=== PATIENT | female | born 1960 | race Caucasian/White ===

== ENCOUNTER 2023-04-01 15:42 | Outpatient (CLI) | payer OTHER, SELFPAY | END 2023-04-01 15:43 | disposition home or self-care (01) | LOC: LKVREF 15:43 | PROVIDERS: Visit Provider Physician Assistant | DX: R55 Syncope and collapse (principal) | CPT/HCPCS: 84484 ==

== ENCOUNTER 2023-12-07 09:38 | Outpatient (RCR) | payer OTHER, SELFPAY | END 2024-04-05 23:59 | disposition home or self-care (01) | PROVIDERS: Visit Provider Student in an Organized Health Care Education/Training Program | DX: M76.61 Achilles tendinitis, right leg (principal); Z51.89 Encounter for other specified aftercare | CPT/HCPCS: 97110; 97140; 97162; 97164 ==

== ENCOUNTER 2024-04-19 09:00 | Outpatient (CLI) | payer OTHER, SELFPAY ==
[2024-04-19 14:59] LABS: Chlamydia DNA Amplified* NOT DETECTED (No Detected); GC DNA Amplified* NOT DETECTED (No Detected)
== END 2024-04-19 09:01 | disposition home or self-care (01) ==
PROVIDERS: PCP Physician Assistant Medical; Visit Provider Physician Assistant Medical
DX: R79.89 Other specified abnormal findings of blood chemistry (principal); R00.1 Bradycardia, unspecified; E53.8 Deficiency of other specified B group vitamins; Z11.3 Encounter for screening for infections with a predominantly sexual mode of transmission; Z13.220 Encounter for screening for lipoid disorders
CPT/HCPCS: 80053; 80061; 82306; 82550; 82607; 82652; 84443; 85379; 86703; 86803; 87491; 87591; 87624

== ENCOUNTER 2024-05-09 13:26 | Outpatient (CLI) | payer OTHER, SELFPAY ==
--- OUTSIDE RECORDS SUMMARY | 2024-05-09 13:28 | XMS_ITS | Referral Summary ---
Author Organization [place] Address [address] [place] [address] Care Team Providers Care Steward/Stewardess Lounge Name Role Phone [facility]- Primary Care Provider Stevenson Zambrano MD Unavailable [phone] Marlys Joy PA-C Unavailable [phone] Marlys Joy PA-C Unavailable [phone] Encounters Date Type Department Care Team Description 03/29/2024 Documentation Only [address] [place] [phone] Marlys Joy PA-C Results 03/28/2024 Travel 03/28/2024 3:15 PM CDT Orders Only [address] [place] [phone] Marlys Joy PA-C Encounter for monitoring flecainide therapy 03/09/[address] [place] [phone] Daniela Lackey RN 03/09/2024 Travel 03/09/2024 10:00 AM CDT Orders Only [facility] [id number] [place] [address] [address] [place] [phone] Marlys Joy PA-C Paroxysmal atrial fibrillation (H); Encounter for monitoring flecainide therapy 03/08/2024 Travel from Last 3 Months Allergies No known active allergies Medications Medication Sig Dispensed Refills Start Date End Date Status Multiple vitamin TABS Take 1 tablet by mouth daily Active CALCIUM CARBONATE PO Take 1,500 mg by mouth daily Active cyanocobalamin (VITAMIN B-12) 1000 MCG tablet Take 1,000 mcg by mouth Give 1000 mcg by mouth one time a day every 30 day(s) for supplement Active aspirin 81 MG EC tablet Take 81 mg by mouth daily Active Apoaequorin (PREVAGEN) 10 MG CAPS Take by mouth daily Active metoprolol succinate ER (TOPROL XL) 25 MG 24 hr tabletIndications:Jose Alejandro roxysmal atrial fibrillation (H) Take 0.5 tablets (12.5 mg) by mouth daily 45 tablet 3 11/04/2023 Active flecainide (TAMBOCOR) 100 MG tabletIndications:En counter for monitoring flecainide therapy Take 50 mg ( 1/2 tab) twice daily 30 tablet 11 03/29/2024 Active Active Problems Problem Noted Date Diagnosed Date Morbid obesity 01/12/2021 S/p total knee replacement, bilateral by Dr. Anthony prescott 11/29/2016 Aftercare following bilatera l knee joint replacement surgery 11/29/2016 Dizziness 11/29/2016 Vitamin B12 deficiency 11/29/2016 History of gastric bypass 11/29/2016 Deep vein thrombosis (DVT) p rophylaxis prescribed at discharge 11/29/2016 Physical deconditioning 11/29/2016 Resolved Problems Problem Noted Date Diagnosed Date Resolved Date Neck pain 12/31/2009 07/16/2011 Headache 12/31/2009 07/16/2011 Overview: Problem list name updated by automated process. Provider to review Pain in joint, lower leg 02/19/2009 OA (osteoarthritis) of knee 02/19/2009 04/29/2009 Social History Tobacco Use Types Packs/Day Years Used Date Smoking Tobacco: Never Smokeless Tobacco: Never Tobacco Cessation:Counseling Given: Not Answered Alcohol Use Standard Drinks/Week Comments Yes 0 (1 standard drink = 0.6 oz pur e alcohol) SOCIAL PHQ-2 Answer Date Recorded PHQ-2 Score 0 11/04/2023 Adolescent Education Answer Date Record ed Getting School Help Needed Not on file 05/15 Sex and Gender Information Value Date Recorded Sex Assigned at Female 05/15/2021 1:20 PM CDT Gender Identity Female 05/15/2021 1:20 PM CDT Sexual Orientation Straight 05/15/2021 1: 20 PM CDT Last Filed Vital Signs Vital Sign Reading Time Taken Comments Blood Pressure 137/76 04/01/2023 8:53 PM CDT Pulse 45 04/01/2023 8:53 PM CDT Temperature 36.9 ??C (98.5 ??F) 04/01/2023 4:53 PM CD T Respiratory Rate 16 04/01/2023 8:53 PM CDT Oxygen Saturation 98% 04/01/2023 8:53 PM CDT Inhaled Oxygen Concentration - - Weight 107.9 kg (237 lb 12.8 oz) 2020 12:57 PM CDT Height 160 cm (5' 3) 11/12/2018 4:05 AM CDT Body Mass Index 42.12 11/12/2018 4:05 AM CDT Plan of Treatment Not on file Procedures Procedure Name Priority Date/Time Associated Diagnosis Comments EKG 12-LEAD, TRACING ONLY Routine 03/28/2024 Encounter for monitoring flecainide therapy EKG 12-LEAD COMPLETE W/READ - CLINICS Routine 03/09/2024 Paroxysmal atrial fibrillation (H) Encounter for monitoring flecainide therapy BASIC METABOLIC PANEL STAT 04/01/2023 6:01 PM CDT LIPID PROFILE Routine 10/18/2007 9:47 AM CDT from Last 3 Months or Most Recently Relevant to Health Maintenance Results * EKG 12-lead, tracing only (03/28/2024) Marlys Joy PA-C ECG ORDERAB LES * EKG 12-lead complete w/read - Clinics (to be scheduled) (03/09/2024) Marlys McAllan Joy PA-C ECG ORDERAB LES * (ABNORMAL) Basic metabolic panel (04/01/2023 6:01 PM CDT) Sodium 138 136 - 145 mmol/L 04/01/2023 6:23 PM CDT LABORATORY Potassium 4.3 3.4 - 5.3 mmol/L 04/01/2023 6:23 PM CDT [facility] LABORATORY Chloride 106 98 - 107 mmol/L 04/01/2023 6:23 PM CDT LABORATORY Carbon Dioxide (CO2) 25 22 - 29 mmol/L 04/01/2023 6:23 PM CDT LABORATORY Anion Gap 7 7 - 15 mmol/L 04/01/2023 6:23 PM CDT [facility] Urea Nitrogen 12.7 8.0 - 23.0 mg/dL 04/01/2023 6:23 PM CDT LABORATORY Creatinine 0.81 0.51 - 0.95 mg/dL 04/01/2023 6:23 PM CDT LABORATORY Calcium 9.7 8.8 - 10.2 mg/dL 04/01/2023 6:23 PM CDT LABORATORY Glucose 128(H) 70 - 99 mg/dL 04/01/2023 6:23 PM CDT LABORATORY GFR Estimate 81 >60 mL/min/1.7 3m2 04/01/2023 6:23 PM CDT LABORATORY Blood STRUCTURE OF LEFT UPPER LIMB / Unknown Venipuncture / Unknown 04/01/2023 6:01 PM CDT 04/01/2023 6:04 PM CDT Arleen Garcia DO LAB - BLOOD ORDERABL ES LABORATORY [facility] [address] Lab (1st floor, no room number) [place] [address], [facility] [phone] * Lipid panel (10/18/2007 9:47 AM CDT) Cholesterol 168 0 - 200 mg/dL MISYS Comment: LDL Cholesterol is the primary guide to therapy: LDL-cholesterol goal in high risk patients is <100 mg/dL and in very high risk patients is <70 mg/dL. The NCEP recommends further evaluation of: patients with cholesterol <200 mg/dL if additionalrisk factors are present, cholesterol >240 mg/dL, triglycerides >150 mg/dL, or HDL <40 mg/dL. Triglycerides 39 0 - 150 mg/dL MISYS HDL Cholesterol 68 50 - 110 mg/dL MISYS LDL Cholesterol Calculated 93 0 - 129 mg/dL [facility] VLDL-Cholesterol 8 0 - 30 mg/dL [facility] Cholesterol/HDL Ratio 2.5 0.0 - 5.0 [facility] 10/18/2007 9:47 AM CDT 10/18/2007 9:29 AM CDT Paula Montelongo APRN ADMINISTRATIVE COORDINATOR LAB - BLOOD O RDERABLES [facility]IS[facility] from Last 3 Months or Most Recently Relevant to Health Maintenance Care Teams Steward/Stewardess Lounge Relationship Specialty Start Date End Date [facility]- [address] [place] [address] PCP - General 11/12/18 Stevenson Zambrano MD [address] [place] [address] Cardiovascular Disease 09/08/22 Marlys Joy PA-C [address] [place] [address] Physician Engineering Department Chair Cardiovascular Disease 10/04/23 Marlys Joy PA-C [address] [place] [address]47[address] Assigned Heart and Vascular Provider 11/29/23
--- OUTSIDE RECORDS SUMMARY | 2024-05-09 13:28 | XMS_ITS | Encounter Summary ---
Author Organization [place] Address [address] [place] [address] Care Team Providers Care Satin Finisher Name Role Phone [facility]- Primary Care Provider Stevenson Zambrano MD Unavailable [phone] Marlys Joy PA-C Unavailable [phone] Marlys Joy PA-C Unavailable [phone] Encounter Details Date Type Department Care Team (Latest Contact Info) Description 03/28/2024 Travel Social History Tobacco Use Types Packs/Day Years Used Date Smoking Tobacco: Never Smokeless Tobacco: Never Alcohol Use Standard Drinks/Week Comments Yes 0 [...] Orientation Straight 05/15/2021 1: 20 PM CDT documented as of this encounter Plan of Treatment Not on file documented as of this encounter Visit Diagnoses Not on filedocumented in this encounter Care Teams Satin Finisher Relationship Specialty Start Date End Date [facility]- [address] [place] [address] PCP - General 11/12/18 Stevenson Zambrano MD [address] [place] [address] Cardiovascular Disease 09/08/22 Marlys Joy, PAAbhinavC [address] [place] [address] Physician Chipper Feeder Cardiovascular Disease 10/04/23 Marlys Joy, PA-C [address] [place] [id number] Assigned Heart and Vascular Provider 11/29/23 documented as of this encounter
--- OUTSIDE RECORDS SUMMARY | 2024-05-09 13:28 | XMS_ITS | Clinical Summary ---
Author Organization [place] Address [address] [place] [address] Care Team Providers Care Property Maintenance Supervisor Name Role Phone [facility]- Primary Care Provider Stevenson Zambrano MD Unavailable [phone] Marlys Joy PA-C Unavailable [phone] Marlys Joy PA-C Unavailable + [phone] Allergies No known active allergies Medications Medication [...] ER (TOPROL XL) 25 MG 24 hr tabletIndications:Pa roxysmal atrial fibrillation (H) Take 0.5 tablets [...] 02/19/2009 OA (osteoarthritis) of knee 02/19/2009 04/29/2009 Encounters Date Type Department Care Team Description 03/29/2024 Documentation Only [place] [id number] [facility] [address] [place] [phone] Marlys Joy PA-C Results 03/28/2024 3:15 PM CDT Orders Only [address] [place] [phone] Marlys Joy PA-C Encounter for monitoring flecainide therapy 03/28/2024 Travel 03/09/2024 10:00 AM CDT Orders Only [facility] [id number] [place] [address] [address] [place] [phone] Marlys Joy PA-C Paroxysmal atrial fibrillation (H); Encounter for monitoring flecainide therapy 03/09/2024 Telephone [facility] [address] [facility] [address] [place] [phone] Daniela Lackey RN 03/09/2024 Travel 03/08/2024 Travel from Last 3 Months Family History Medical History Relation Comments No Known Problems Father Coronary Artery Disease Mother Hypertension Mother Relation Status Comments Father Mother Social History Tobacco Use Types Packs/Day Years [...] 11/12/2018 4:05 AM CDT Plan of Treatment Health Maintenance Due Date Last Done Comments ADVANCE CARE PLANNING 1959 ANNUAL REVIEW OF HM ORDERS 1959 CT COLONOGRAPHY 1959 FIT 1959 FLEX SIG 1959 sDNA (Cologuard) 1959 COLONOSCOPY 1969 COLORECTAL CANCER SCREENING 1969 HIV SCREENING 1974 HEPATITIS C SCREENING 1977 Pneumococcal Vaccine: Pediatrics (0 to 5 Years) and At-Risk Patients (6 to 64 Years) (2 of 2 - PPSV23 or PCV20) 11/11/2009 09/16/2009 YEARLY PREVENTIVE VISIT 03/25/2011 03/25/20 10, 03/21/2009, 07/05/2006, Additional history exists LIPID 10/17/2012 10/18/2007, 10/27/2006 MAMMO SCREENING 08/12/2018 08/12/2016, 12/2016, 06/17/2014, Additional history exists PAP 06/01/2019 06/01/2016 RSV VACCINE (1 - Risk 60-74 years 1-dose series) 2019 COVID-19 Vaccine ( season) 2024 06/08/2023, 02/05/2022, 06/10/2021, Additional history exists INFLUENZA VACCINE (#1) 2024 , 04/26/2022, 06/09/2021, Additional history exists GLUCOSE 04/01/2026 04/01/2023, 04/2 01/2017, 10/18/2007, Additional history exists DTAP/TDAP/TD IMMUNIZATION (3 - Td or Tdap) 12/09/2031 12/08/2021, 07/07/2011, 08/23/2005 ZOSTER IMMUNIZATION Completed 10/23/2021, 2 PHQ-2 (once per calendar year) Completed 11/04/2023 HPV IMMUNIZATION Aged Out No longer e ligible based on patient's age to complete this topic MENINGITIS IMMUNIZATION Aged Out No l onger eligible based on patient's age to complete this topic RSV MONOCLONAL ANTIBODY Aged Out No l onger eligible based on patient's age to complete this topic Procedures Procedure Name Priority Date/Time Associated Diagnosis [...] - Clinics (to be scheduled) (03/09/2024) Marlys Joy PA-C ECG ORDERAB LES * (ABNORMAL) [...] DO LAB - BLOOD ORDERABL ES LABORATORY [facility] Acute [facility] Lab [address] Lab (1st floor, no room number) [place] [address], [facility] [phone] * Lipid panel (10/18/2007 9:47 AM CDT) [...] 10/18/2007 9:29 AM CDT Paula Montelongo APRN RESEARCH CHIEF ENGINEER LAB - BLOOD O RDERABLES [facility]ISYS from Last 3 Months or Most Recently Relevant to Health Maintenance Care Teams Property Maintenance Supervisor Relationship Specialty Start Date End Date [facility]- [address] [place] [address] PCP - General 11/12/18 Stevenson Zambrano MD [address] [place] [address] Cardiovascular Disease 2/1/23 Marlys Joy PA-C [address] [place] [address] Physician Change Control Manager Cardiovascular Disease 10/04/23 Marlys Joy PA-C [address] [place] [id number] Assigned Heart and Vascular Provider 11/29/23
--- OUTSIDE RECORDS SUMMARY | 2024-05-09 13:28 | XMS_ITS | Encounter Summary ---
Author Organization [place] Address [address] [place] [address] Care Team Providers Care Dramatic Critic Name Role Phone [facility]- Primary Care Provider Stevenson Zambrano MD Unavailable Marlys Joy PA-C Unavailable [phone] Marlys Joy PA-C Unavailable [phone] Reason for Visit * Reason Comments Results Encounter Details Date Type Department Care Team (Late st Contact Info) Description 03/29/2024 Documentation Only [facility] [place] [id number] [facility] [address] [place] [address] Marlys Joy PA-C [address] [facility] [address] [place], [place] [phone] Results Social History Tobacco Use Types Packs/Day Years [...] PM CDT documented as of this encounter Progress Notes * Marlys Joy PA-C - 03/29/2024 8:27 AM CDT Please let Linda know I reviewed EKG done yesterday after reducing flecainide back to 50 mg BID andcontinuing metoprolol XL 12.5 daily for significant bradycardia (HR 47) EKG looks much better, with SB 54 bpm (QRS duration 102 ms) No changes needed. Would continue flecainide 50 BID and metoprolol XL 12.5 Follow-up 10/2024 ([facility]) as planned. Contact us if recurrent AF Thx - Henna * Daniela Lackey RN - 03/29/2024 8:27 AM CDT 03/29/24 Attempted to call pt but reached VM. PAN and requested callback. KHerroRN 840 am * Daniela Lackey, JASON - 03/29/2024 8:27 AM CDT 03/29/24 Spoke w pt and explained results of EKG . Pt voiced understanding and agreement with plan. KHerroRN 935 am documented in this encounter Plan of Treatment Not on file documented as of this encounter Visit Diagnoses Diagnosis Encounter for monitoring flecainide therapy Encounter for therapeutic drug monitoring documented in this encounter Care Teams Dramatic Critic Relationship Specialty Start Date End Date [facility]- [address] [place] [address] PCP - General 11/12/18 Stevenson Zambrano MD [address] [facility] [address] [place] [address] Cardiovascular Disease 09/08/22 Marlys Joy PA-C [address] [place] [address] Physician Processing Archivist Cardiovascular Disease 10/04/23 Marlys Joy PA-C [address] [place] [address] Assigned Heart and Vascular Provider 11/29/23 documented as of this encounter
--- OUTSIDE RECORDS SUMMARY | 2024-05-09 13:28 | XMS_ITS | Encounter Summary ---
Author Organization [facility] Address [address] [place] [address] Care Team Providers Care Car Seat Maker Name Role Phone Cristofer Llanes MD Primary Care Provider [phone] Encounter Details Date Type Department Care Team (Late st Contact Info) Description 10/20/2016 Scanned History External to [facility] Transferred Record, Provider TRANSFERRED RECORDS Social History Tobacco Use Types Packs/Day Years Used Date Smoking Tobacco: Never Smokeless Tobacco: Never Alcohol Use Standard Drinks/Week Comments Yes 0 (1 standard drink = 0.6 oz pur e alcohol) very rare Sex and Gender Information Value Date Recorded Sex Assigned at Not on file Gender Identity Not on file Sexual Orientation Not on file documented as of this encounter Plan of Treatment Not on file documented as of this encounter Visit Diagnoses Not on filedocumented in this encounter Additional Health Concerns Infection Onset Date Last Indicated Resolved Time R/O COVID19 03/24/2020 03/24/2020 03/27/2020 3:34 AM CDT documented as of this encounter Care Teams Car Seat Maker Relationship Specialty [place] [address] [place] [address] PCP - General 02/15/07 documented as of this encounter
--- OUTSIDE RECORDS SUMMARY | 2024-05-09 13:28 | XMS_ITS | Encounter Summary ---
Author Organization [place] Address [address] [place] [address]. [place] [address] Care Team Providers Care Seasonal Recruiter Name Role Phone [facility]- Primary Care Provider Stevenson Zabmrano MD Unavailable [phone] Marlys Joy PA-C Unavailable [phone] Marlys Joy PA-C Unavailable + [phone] Encounter Details Date Type Department Care Team (Late st Contact Info) Description 03/28/2024 3:15 PM CDT Orders Only [facility] [id number] [place] [address] [address] [place] [address] Marlys Joy PA-C [address] [facility] [address] [place], [place] [address] Encounter for monitoring flecainide therapy Social History Tobacco Use Types Packs/Day Years [...] on file documented as of this encounter Procedures Procedure Name Priority Date/Time Associated Diagnosis Comments EKG 12-LEAD, TRACING ONLY Routine 03/28/2024 Encounter for monitoring flecainide therapy documented in this encounter Results * EKG 12-lead, tracing only (03/28/2024) Marlys Joy PA-C ECG ORDERAB LES documented in this encounter Visit Diagnoses Diagnosis Encounter for monitoring flecainide therapy Encounter for therapeutic drug monitoring documented in this encounter Care Teams Seasonal Recruiter Relationship Specialty Start Date End Date [facility]- [address] [place] [address] PCP - General 11/12/18 Stevenson Zambrano MD [address] [place] [address] Cardiovascular Disease 09/08/22 Marlys Joy PA-C [address] [place] [address] Physician Beef Cattle Farm Worker Cardiovascular Disease 10/04/23 Marlys Joy PA-C [address] [place] [id number] Assigned Heart and Vascular Provider 11/29/23 documented as of this encounter
--- OUTSIDE RECORDS SUMMARY | 2024-05-09 13:28 | XMS_ITS | Continuity of Care Document ---
Author Organization [facility] Address [address] [place] [address] Phone Care Team Providers Care Spot Welder Name Role Phone Shawn Valles Unavailable Unavailable Allergies, Adverse Reactions, Alerts Substance Reaction Status Criticality No Known Allergies Active No Inform ation Procedures Procedure Date Office/Outpatient Visit,Est, Mod 2023 Office/Outpatient Visit,New, Mod 2023 X-Ray Exam Lower Spine 2-3 Views 2023 Advance Directives Directive Yes / No Effective Date File Name No Information Encounters Encounter Description Practice Location Reason(s) For Visit Diagnoses Date Provider Providers Copied on Encounter Office/Outpati ent Visit,Est, Mod [facility], [address], [place], [place], [id number], [place] tel:[phone] [facility] [place] Spondylolisth esis, lumbar regionOther spondylosis, lumbar region Abbie Escobar. [facility] [place], [address] [place] [address], [id number], [place]. tel:[phone] Referring Provider: Shawn Rose, [address], [address]. tel:[phone] Office/Outpati ent Visit,New, Mod [facility], [address], [place], [place], [id number], [place] tel:[phone] [facility] [place] Spondylolisth esis, lumbar regionOther spondylosis, lumbar region Abbie Escobar. [facility], [address] [place] [address], [place], [place], [id number], [place]. tel:[phone] Referring Provider: Shawn Rose, [facility] [address] [place] [address], [place], [address]. tel:[phone] Family History Family Member Type Diagnosis Age At Onset Sister Problem (finding) Ankylosing spondylitis Mother Problem (finding) Ankylosing spondylitis Payers Payer name Insurance type Covered green party ID Diogo iglesias(s) r [facility] CI [id number] Social History Type Description Quantity Date Captured Comments Alcohol Use Details Unknown Caffeine Use Details Unknown Tobacco Use Status No Information Smoking Status No Information Sex Female Vital Signs Date / Time: Height Weight BMI Pulse Rate Blood Pressure Temperature Respiratory Rate Body Surface Area Head Circumference Head Circ. Percentile Wt./[place]. Percentile BMI percentile Pulse Ox Inhaled Ox 1:41 PM 62.00 in 102.058 kg (225.00 lbs) 41.1 5 kg/m eter (2) Chief Complaint And Reason For Visit No Information Reason For Referral Reason For Referral No Information Plan Of Treatment Date Type Action Status Future Order: Radiology Order AP Lateral Lumbar (APLatLumb), Ordered on: Ordered History Of Present Illness Encounter Date Complaint History Of Prese nt Illness No Information Functional Status Date Functional Assessmen t No Information Instructions Date Instruction Additional Infor mation No Information Assessments Type Assessment Date assessment Spondylolisthesis, lumbar region assessment Other spondylosis, lumbar region Patient Care Teams Name Effective Dates (start - stop) Status Members No Information
--- OUTSIDE RECORDS SUMMARY | 2024-05-09 13:28 | XMS_ITS | Clinical Summary ---
[facility] Address [address] [place] [address] Care Team Providers Care Farm Product Purchaser Name Role Phone Analy Llanes MD Primary Care Provider [phone] Source Comments You are receiving this document as you are listed as the primary care provider,follow-up provider, or the patient has been referred to you for consultation.This is in compliance with the Medicare and[facility] EHR Incentive Program,which states Providers who transition their patient to another setting of careor provider of care or refers their patient to another provider of care shouldprovide summary care record for each transition of care or referral. [facility] Allergies No known active allergies Medications Medication Sig Dispensed Refills Start Date End Date Status MULTIPLE VITAMIN TABS 1 qd 30 0 11/15/2003 Active CALCIUM 1500 MG OR TABSIndications:Pain in joint, multiple sites One by mouth every day 30 12 07/12/2006 Active vitamin B-12 (AKA: CYANOCOBALAMIN) 1000 MCG tablet Take 1,000 mcg by mouth. Active Active Problems Problem Noted Date Diagnosed Date Screening for cervical cancer 06/04/2016 Overview (03/30/2017): Per visit note 03/21/13: History of abnormal Pap smear: no 2012 NILM 2016 NILM, HPV negative 55 y.o. Plan: Co-test 05/2021 ; Pap test history Non morbid obesity due to excess calories 2013 Status post gastric bypass for obesity 2 Primary osteoarthritis of both knees 07/26/2011 Edema 03/21/2009 Postmenopausal atrophic vaginitis 03/21/2009 Insomnia 08/28/2008 Vitamin B12 deficiency 05/15/2007 Resolved Problems Problem Noted Date Diagnosed Date Resolved Date Hallux valgus (acquired), left foot 06/01/2016 11/17/2016 Anxiety disorder 10/15/2013 06/01/2016 Secondary localized osteoarthrosis, lower leg 02/16/20 09 06/01/2016 Hypothyroid 01/15/2015 Immunizations Name Administration Dates Next Due Flu Vac (3+ yrs) 06/08/2009 H1n1 Miv [employer] 4+ Yr Trac e Preservative (Injected) 09/16/2009 Influenza IIV4 (Quadrivalent ) 0.5mL (18383) 04/11/2014 Influenza Vaccine (3+years) ([facility]) 010 Influenza, Unspecified Formulation 05/18/2016,,05/21/2011 Td (7+ yrs) 08/23/2005 Tdap 07/07/2011 07/07/2021 Family History Medical History Relation Name Comments Macular Degeneration Mother Cancer, Breast Maternal Aunt early 60's Cancer, Ovary Negative Family History Relation Name Status Comments Father Alive Mother Alive Daughter Alive [place], 1986 Maternal Aunt early 60's Maternal Grandfather Maternal Grandmother Paternal Grandfather Paternal Grandmother Alive Sister 1 Alive Sister 2 Alive Son Alive Christopher, 19 85 Social History Tobacco Use Types Packs/Day Years Used Date Smoking Tobacco: Never Smokeless Tobacco: Never Alcohol Use Standard Drinks/Week Comments Yes 0 (1 standard drink = 0.6 oz pur e alcohol) very rare Sex and Gender Information Value Date Recorded Sex Assigned at Not on file Gender Identity Not on file Sexual Orientation Not on file Last Filed Vital Signs Vital Sign Reading Time Taken Comments Blood Pressure 109/74 11/17/2016 3:20 PM CDT Pulse 72 11/17/2016 3:20 PM CDT Temperature 36.8 ??C (98.3 ??F) 11/17/2016 3:20 PM CD T Respiratory Rate 14 11/17/2016 3:20 PM CDT Oxygen Saturation 97% 04/04/2013 1:57 PM CDT room air Inhaled Oxygen Concentration - - Weight 85.8 kg (189 lb 4 oz) 11/17/2016 3:20 PM CDT Height 157.5 cm (5' 2) 11/17/2016 3:20 PM CDT Body Mass Index 34.61 11/17/2016 3:20 PM CDT Plan of Treatment Health Maintenance Due Date Last Done Comments Adult Preventive Visit 06/01/2017 6, 01/13/2015, 03/21/2013, Additional history exists Mammogram 08/12/2017 08/12/2016, 12/2016, 06/17/2014, Additional history exists Colonoscopy 07/17/2020 07/17/2010 Cervical Cancer Screening 06/01/20212015, 03/21/2013, 03/21/2009, Additional history exists Cholesterol 06/01/2021 06/01/2016, 12/06 (Completed), 03/20/2010, Additional history exists DTaP/Tdap/Td (2 - Tdap) 07/07/2021 07/07/2011, 08/23 COVID-19 Vaccine ( season) 2024 06/08/2023, 02/05/2022, 06/10/2021, Additional history exists Influenza (#1) 2024 06/08/2023, 04/08, 06/09/2021, Additional history exists RSV (1 - 1-dose 75+ series) 2034 Pneumococcal Aged Out 09/16/2009 No longer eligi ble based on patient's age to complete this topic HIV Screening (Preventive Services) Completed 03/20/2010, 03/20/2010, 11/18/2009, Additional history exists Hep C Screening (Preventive Services) Completed 01/13/2015 Zoster/Shingles Completed 10/23/2021, 08/24/2021 HepA Aged Out No longer eligi ble based on patient's age to complete this topic HepB Aged Out No longer eligi ble based on patient's age to complete this topic Hib Aged Out No longer eligi ble based on patient's age to complete this topic IPV (Polio) Aged Out No longer eligi ble based on patient's age to complete this topic Infant RSV Aged Out No longer eligi ble based on patient's age to complete this topic MCV4 Aged Out No longer eligi ble based on patient's age to complete this topic Procedures Procedure Name Priority Date/Time Associated Diagnosis Comments MM MAMMOGRAM SCREENING BILAT W IMPLANTS W CAD Routine 08/12/2016 3:39 PM SALESPERSON FLORIST SUPPLIES Visit for screening mammogram PAP TEST, ROUTINE Routine 06/01/2016 3:3 3 PM CDT Screening for cervical cancer LIPID PANEL & DIRECT LDL (IF NEEDED) Routine 06/01/2016 3:33 PM CDT Overweight HEPATITIS C ANTIBODY, WITH REFLEX Routine 01/13/2015 5:04 PM CDT Special screening examination for other specified viral diseases COLONOSCOPY Routine 07/17/2010 10:25 AM SALESPERSON FLORIST SUPPLIES Special screening for malignant neoplasms, colon HIV ANTIBODY Routine 03/20/2010 10:34 AM CDT Exposure to HIV from Last 3 Months or Most Recently Relevant to Health Maintenance Results * MM Mammogram Screening Bilat W Implants W CAD (08/12/2016 3:39 PM SALESPERSON FLORIST SUPPLIES) Anatomical Region Laterality Modality Breast Bilateral Mammography Impressions 2016 2:08 PM SALESPERSON FLORIST SUPPLIES : ACR BI-RADS Category 2: Benign RECOMMENDATION: Follow Up Imaging in 12 months - Bilateral The results and recommendations of this examination will be communicated to the patient. Narrative 2016 2:08 PM SALESPERSON FLORIST SUPPLIES MM MAMMOGRAM SCREENING BILAT W IMPLANTS W CAD performed on 08/12/16 Compared to: 06/17/2014 MAMMOGRAM SCREENING W/IMPLANTS BILATERAL, 04/26/2013 MAMMOGRAM SCREENING W/IMPLANTS BILATERAL, 06/11/2011 MAMMOGRAM SCREENING BILATERAL FINDINGS: Bilateral screening mammogram was performed with the assistance of Computer-Aided Detection. The breasts are heterogeneously dense, which may obscure small masses. There are implants present. There is no radiographic evidence of malignancy. ?? Analy Llanes MD RAD RIGO * Lipid Panel and Direct LDL(If Needed) (06/01/2016 3:33 PM CDT) Hours Fasting 2 hours [facility] Cholesterol 181 0 - 199 mg/dl [facility] Triglyceride 76 0 - 149 mg/dl [facility] HDL 67 >40 mg/dl [facility] LDL, Calc. 99 0 - 129 mg/dl [facility] Non HDL Chol, Calc 114 mg/dl [facility] 06/01/2016 3:33 PM CDT 06/01/2016 3:34 PM CDT Narrative [facility] - 06/01/2016 6:51 PM CDT Performed at [facility], [address] ??[id number] Analy Llanes MD LAB_1 Performing Organization Address City/[facility]/ZIP Co de Phone Number [facility] [phone] * Pap Test, Routine (06/01/2016 3:33 PM CDT) Cytology, Pap (NOTE) Automotive Buyer Cytology Report Patient Name: NURA JACKSON Taken: 06/01/2016 Received: 06/02/2016 Reported: 06/04/2016 Physician(s): ANALY LLANES ?Source of Specimen Pap Test, Routine Cervical/Endocervi sangeeta: ?Specimen Adequacy ?Satisfactory for evaluation. ??Atrophic specimen; endocervical component cannot be determined. ? Final Cytologic Interpretation/Res ult NEGATIVE FOR INTRAEPITHELIAL LESION OR MALIGNANCY (NILM) ?? *Electronically Signed Out By MARY Jameson (ASCP)* MARY Negrete (ASCP) MARY Jameson (ASCP) ? Pap Smear History Date of Last Menstrual Period: Menopausal ?? Microscopic Description Microscopic examination is performed. [facility] Department of Pathology [address] [place] [address] ??[phone] [facility] 06/01/2016 3:33 PM CDT 06/02/2016 3:56 PM CDT Analy Llanes MD LAB_1 Performing Organization Address City/[facility]/ZIP Co de Phone Number [facility] [employer]iss [phone] * HEPATITIS C ANTIBODY, WITH REFLEX (01/13/2015 5:04 PM CDT) Anti-HCV Negative (Non Reactive) [facility] Comment:Does Not Rule Out In fection with HCV 01/13/2015 5:04 PM CDT 01/13/2015 5:05 PM CDT Narrative [facility] - 01/15/2015 10:31 AM CDT Performed at [facility], [address] [place] [address] ??[id number] Analy Llanes MD LAB_1 [facility] [phone] * COLONOSCOPY [[id number]] (07/17/2010 10:25 AM SALESPERSON FLORIST SUPPLIES) URL Link [facility] 07/17/2010 10:2 5 AM SALESPERSON FLORIST SUPPLIES Narrative [facility] - 07/17/2010 11:06 AM SALESPERSON FLORIST SUPPLIES Indications: ? Screening for malignant neoplasm in the colon, This ? is the patient's first colonoscopy Providers: ? Lopez Harrell MD, Trista Hicks, RN Referring MD: ?Cindy Crabtree MD (Referring MD) Medicines: ? Fentanyl IV 200 mcgs, Versed IV 4 mgs Complications: ? No immediate complications. Estimated blood loss: None Procedure: ? Pre-Anesthesia Assessment: ? - The risks and benefits of the procedure and the ? sedation options and risks were discussed with the ? patient. All questions were answered and informed ? consent was obtained. ? - Pre-procedure physical examination revealed no ? contraindications to sedation. ? - After reviewing the risks and benefits, the patient ? was deemed in satisfactory condition to undergo the ? procedure. ? - The anesthesia plan was to use moderate ? sedation/analgesia (conscious sedation). ? After I obtained informed consent, the scope was ? passed under direct vision. Prior to sedation, ? patient identity and procedure was reverified. ? Throughout the procedure, the patient's blood ? pressure, pulse, and oxygen saturations were ? monitored continuously. The PCF-H180AL colonoscope ? was introduced through the anus and advanced to the ? cecum, identified by appendiceal orifice & ileocecal ? valve. The colonoscopy was performed without ? difficulty. The patient tolerated the procedure well. ? The quality of the bowel preparation was good. Findings: ? The entire examined colon appeared normal on direct and retroflexion ? views. Impression: ?- The entire examined colon is normal on direct and ? retroflexion views. Recommendation: ?- Repeat colonoscopy in 10 years for screening ? purposes. CPT Codes(s): ?--- Professional --- ? G0121 ICD9 Code(s): ?--- Professional --- ? V76.51 CPT?? 2009 [employer]. All Rights Reserved. No fee schedules, basic units, relative values or related listings are included in CPT. A does not directly or indirectly practice medicine or dispense medical services. A assumes no liability for data contained or not contained herein. CPT is a registered trademark of the [employer]. The codes documented in this report are preliminary and upon volleyball referee review may be revised to meet current compliance requirements. Attending Participation: Lopez Harrell MD Signed Date: 07/17/2010 11:05 AM Number of Addenda: 0 This report has been signed electronically. Note initiated on 07/17/2010 10:25 AM Procedure Note Lopez Harrell MD - 07/17/2010 Indications: Screening for malignant neoplasm in the colon, This is the patient's first colonoscopy Providers: Lopez Harrell MD, Trista Hicks, JASON Referring MD: Cindy Crabtree MD (Referring MD) Medicines: Fentanyl IV 200 mcgs, Versed IV 4 mgs Complications: No immediate complications. Estimated blood loss:None Procedure: Pre-Anesthesia Assessment: - The risks and benefits of the procedure and the sedation options and risks were discussed with the patient. All questions were answered and informed consent was obtained. - Pre-procedure physical examination revealed no contraindications to sedation. - After reviewing the risks and benefits, the patient was deemed in satisfactory condition to undergo the procedure. - The anesthesia plan was to use moderate sedation/analgesia (conscious sedation). After I obtained informed consent, the scope was passed under direct vision. Prior to sedation, patient identity and procedure was reverified. Throughout the procedure, the patient's blood pressure, pulse, and oxygen saturations were monitored continuously. The PCF-H180AL colonoscope was introduced through the anus and advanced to the cecum, identified by appendiceal orifice & ileocecal valve. The colonoscopy was performed without difficulty. The patient tolerated the procedure well. The quality of the bowel preparation was good. Findings: The entire examined colon appeared normal on direct and retroflexion views. Impression: - The entire examined colon is normal on direct and retroflexion views. Recommendation: - Repeat colonoscopy in 10 years for screening purposes. CPT Codes(s): --- Professional --- G0121 ICD9 Code(s): --- Professional --- V76.51 CPT?? 2009 [employer]. All Rights Reserved. No fee schedules, basic units, relative values or related listings are included in CPT. [facility] does not directly or indirectly practice medicine or dispense medical services. [facility] assumes no liability for data contained or not contained herein. CPT is a registered trademark of the [employer]. The codes documented in this report are preliminary and upon volleyball referee review may be revised to meet current compliance requirements. Attending Participation: Lopez Harrell MD Signed Date: 07/17/2010 11:05 AM Number of Addenda: 0 This report has been signed electronically. Note initiated on 07/17/2010 10:25 AM Lopez Harrell MD [facility] [place], [place] * HIV ANTIBODY (03/20/2010 10:34 AM CDT) HIV 1/2 Antibody Negative (Non Reactive) [facility] Comment: HIV Antibody testing may be falsely negative during the window period. If the patient has had recent exposure (within the past four weeks), consider contacting Infectious Diseases for clarification. 03/20/2010 10:3 4 AM CDT 03/20/2010 10:51 AM CDT Raymundo Patrick MD LAB_1 [facility] [address] [address] from Last 3 Months or Most Recently Relevant to Health Maintenance Advance Directives * No Code Status (Latest Code Status on File) Date Activated Date Inactivated Comments 08/23/2005 7:20 AM 08/23/2005 8:20 AM Care Teams Farm Product Purchaser Relationship Specialty [place] [address] [place] [address] PCP - General 02/15/07
--- OUTSIDE RECORDS SUMMARY | 2024-05-09 13:28 | XMS_ITS | Encounter Summary ---
Author Organization [facility] Address [address] [place] [address] Care Team Providers Care Technician Plant And Maintenance Name Role Phone [facility]- Primary Care Provider Stevenson Zambrano MD Unavailable [phone] Marlys Joy PA-C Unavailable [phone] Marlys Joy PA-C Unavailable [phone] Encounter Details Date Type Department Care Team (Latest Contact Info) Description 03/09/2024 Travel Social History Tobacco Use Types Packs/Day [...] on filedocumented in this encounter Care Teams Technician Plant And Maintenance Relationship Specialty Start Date End Date [facility]- [address] [place] [address] PCP - General 11/12/18 Stevenson Zambrano MD [address] [place] [address] Cardiovascular Disease 09/08/22 Marlys Joy, PAAbhinavC [address] [place] [address] Physician Business Administration Professor Cardiovascular Disease 10/04/23 Marlys Joy, PA-C [address] [place] [id number] Assigned Heart and Vascular Provider 11/29/23 documented as of this encounter
--- OUTSIDE RECORDS SUMMARY | 2024-05-09 13:28 | XMS_ITS | Encounter Summary ---
Author Organization [facility] Address [address] [place] [address] Care Team Providers Care District Court Reporter Name Role Phone [facility]- Primary Care Provider Stevenson Zambrano MD Unavailable [phone] Marlys Joy PA-C Unavailable [phone] Marlys Joy PA-C Unavailable [phone] Encounter Details Date Type Department Care Team (Late st Contact Info) Description 03/09/2024 Telephone [facility] Heart [address] [place] [address] Daniela Lackey RN Social History Tobacco Use Types Packs/Day Years [...] PM CDT documented as of this encounter Miscellaneous Notes * Telephone Encounter - Daniela Lackey RN - 03/29/2024 11:24 AM CDT 03/29 See documentation encounter from today KHerroRN 1125 am * Telephone Encounter - Aditi Brink MD - 03/29/2024 11:21 AM CDT ECG on 03/28/2024 shows sinus bradycardia at 54, improved from previous. DI * Telephone Encounter - Daniela Lackey RN - 03/09/2024 5:15 PM CDT 03/09/24 Spoke w pt and explained recommendations from Henna Joy PA-C Reviewed EKG done today showing significant bradycardia on flecainide 75mg q12h and metoprolol XL 12.5 mg daily HR now 47 bpm. QRS duration acceptable 104 ms. Last EKG showed HR 62 bpm. Confirm doses of medications If that is what she is taking, please reduce flecainide back to 50 BID. She was on this until 09/2021 when it was increased due to recurrent AF. 3. Please update epic med list 4. Repeat EKG 2-3 weeks. I have ordered Pt verified she is currently taking Flecainide 75 mg BID and Toprol 12.5 mg daily. She is in agreement to lowering Flecainide to 50 mg BID Will have scheduling call pt to set up EKG in 2-3 weeks Rx sent to [facility] in [place] Pt voiced understanding and agreement with plan. KHerroRN 518 pm * Telephone Encounter - Marlys Joy PA-C - 03/09/2024 4:50 PM CDT Reviewed EKG done today showing significant bradycardia on flecainide 75mg q12h and metoprolol XL 12.5 mg daily HR now 47 bpm. QRS duration acceptable 104 ms. Last EKG showed HR 62 bpm. Confirm doses of medications If that is what she is taking, please reduce flecainide back to 50 BID. She was on this until 09/2021 when it was increased due to recurrent AF. 3. Please update epic med list 4. Repeat EKG 2-3 weeks. I have ordered Vincent valero March 09, 2024 at 4:54 PM * Telephone Encounter - Daniela Lackey RN - 03/09/2024 10:18 AM CDT 03/09/24 Pt here for ambulatory EKG after virtual visit w Henna on 11/03, on Flecainide therapy. Routing to Henna Joy PA-C for review KHerroRN 1020 am documented in this encounter Plan of Treatment Not on file documented as of this encounter Results * EKG 12-lead, tracing only (03/28/2024) Marlys Joy PA-C ECG ORDERAB LES documented in this encounter Visit Diagnoses Diagnosis Encounter for monitoring flecainide therapy- Primary Encounter for therapeutic drug monitoring documented in this encounter Care Teams District Court Reporter Relationship Specialty Start Date End Date [facility]- [address] [place] [address] PCP - General 11/12/18 Stevenson Zambrano MD [address] [place] [id number] Cardiovascular Disease 09/08/22 Marlys Joy PA-C [address] [place] [address] Physician Remote Inpatient Coder Cardiovascular Disease 10/04/23 Marlys Joy PA-C [address] [place] [address] Assigned Heart and Vascular Provider 11/29/23 documented as of this encounter
--- OUTSIDE RECORDS SUMMARY | 2024-05-09 13:29 | XMS_ITS | Encounter Summary ---
Author Organization [facility] Address [address] [place] [address] Care Team Providers Care Shredding Machine Tender Name Role Phone [facility]- Primary Care Provider Stevenson Zambrano MD Unavailable [phone] Marlys Joy PA-C Unavailable [phone] Marlys Joy PA-C Unavailable [phone] Encounter Details Date Type Department Care Team (Latest Contact Info) Description 03/08/2024 Travel Social History Tobacco Use Types Packs/Day [...] on filedocumented in this encounter Care Teams Shredding Machine Tender Relationship Specialty Start Date End Date [facility]- [address] [place] [address] PCP - General 11/12/18 Stevenson Zambrano MD [address] [place] [id number] Cardiovascular Disease 09/08/22 Marlys Joy, PAAbhinavC [address] [place] [id number] Physician Plant Engineer Cardiovascular Disease 10/04/23 Marlys Joy, PA-C [address] [place] [address] Assigned Heart and Vascular Provider 11/29/23 documented as of this encounter
--- OUTSIDE RECORDS SUMMARY | 2024-05-09 13:29 | XMS_ITS | Encounter Summary ---
Author Organization [facility] Address [address] [place] [address]. [place] [address] Care Team Providers Care Timber Rider Name Role Phone [facility]- Primary Care Provider Stevenson Zambrano MD Unavailable [phone] Marlys Joy PA-C Unavailable [phone] Marlys Joy PA-C Unavailable [phone] Encounter Details Date Type Department Care Team (Late st Contact Info) Description 03/09/2024 10:00 AM CDT Orders Only [facility] Heart [facility] [address] [place] [address] [address] [place] [address] Marlys Joy PA-C [address] [facility] [address] [place], [place] [phone] Paroxysmal atrial fibrillation (H); Encounter for monitoring flecainide therapy Social History [...] Name Priority Date/Time Associated Diagnosis Comments EKG 12-LEAD COMPLETE W/READ - CLINICS Routine 03/09/2024 Paroxysmal atrial fibrillation (H) Encounter for monitoring flecainide therapy documented in this encounter Results * EKG 12-lead complete w/read - Clinics (to be scheduled) (03/09/2024) Marlys Joy PA-C ECG ORDERAB LES documented in this encounter Visit Diagnoses Diagnosis Paroxysmal atrial fibrillation (H) Atrial fibrillation Encounter for monitoring flecainide therapy Encounter for therapeutic drug monitoring documented in this encounter Care Teams Timber Rider Relationship Specialty Start Date End Date [facility]- [address] [place] [address] PCP - General 11/12/18 Stevenson Zambrano MD [address] [place] [address] Cardiovascular Disease 09/08/22 Marlys Joy PA-C [address] [place] [address] Physician [place] Attorney Cardiovascular Disease 10/04/23 Marlys Joy PA-C [address] [place] [id number] Assigned Heart and Vascular Provider 11/29/23 documented as of this encounter
--- NOTE | 2024-05-09 14:00 | CRLHL7_ITS ---
For Patients: As a result of the Century Cures Act, medical imaging exams and procedure reports are released immediately into your electronic medical record. You may view this report before your referring provider. If you have questions, please contact your health care provider. INDICATION: Fatigue. Evaluate for malignancy. TECHNIQUE: CT scan of the chest, abdomen, and pelvis with 111 cc of Isovue-370 given intravenously. FINDINGS: Chest: No mediastinal or hilar adenopathy. No axillary adenopathy. No central pulmonary emboli. Bilateral breast implants. The lungs show no focal pulmonary opacities. No pneumothorax. Abdomen and pelvis: No focal abnormalities identified in the visualized portions of the liver, spleen, pancreas, adrenal glands, and kidneys. No hydronephrosis. No obstructing uroliths. Gastric bypass changes. The remainder of the GI tract is incompletely distended but shows no gross abnormalities. No retroperitoneal, pelvic sidewall, or mesenteric adenopathy. Degenerative changes of the spine. Impression : 1. No acute abnormalities of the chest, abdomen, or pelvis identified. Please note that all CT scans at this facility use dose modulation, iterative reconstruction, and/or weight-based dosing when appropriate to reduce radiation dose to as low as reasonably achievable. Dictated by Jose Zazueta MD @ 05/11/2024 12:43:39 PM (Electronically Signed)
== END 2024-05-09 13:27 | disposition home or self-care (01) ==
LOC: CT 13:26
PROVIDERS: PCP Physician Assistant Medical; Visit Provider Physician Assistant Medical
DX: D64.9 Anemia, unspecified (principal); R53.83 Other fatigue; R79.89 Other specified abnormal findings of blood chemistry
CPT/HCPCS: 71260; 74177; Q9967

== ENCOUNTER 2024-06-06 14:41 | Outpatient (CLI) | payer OTHER, SELFPAY ==
--- OUTSIDE RECORDS SUMMARY | 2024-06-07 08:30 | XMS_ITS | Encounter Summary ---
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 Gender Identity Female 05/15/2021 1:20 PM CDT Sexual Orientation Straight 05/15/2021 1: 20 PM CDT documented as of this encounter Plan of Treatment Not on file documented as of this encounter Visit Diagnoses Not on filedocumented in this encounter Care Teams Club Concierge Relationship Specialty Start Date End Date [facility]- [address] [place], [place] [id number] PCP - General 11/12/18 Stevenson Zambrano MD [address] [place] [address] Cardiovascular Disease 09/08/22 Marlys Joy PA-C [address] [place] [address] Physician Extension Educator Cardiovascular Disease 10/04/23 Marlys Joy, GURINDER [address] [place] [address] Assigned Heart and Vascular Provider 11/29/23 documented as of this encounter
--- OUTSIDE RECORDS SUMMARY | 2024-06-07 08:30 | XMS_ITS | Clinical Summary ---
Author Organization [facility] Address [address] [place] [address] Care Team Providers Care Critical Care Nurse Practitioner Name Role Phone Analy Llanes MD Primary Care Provider [phone] Source Comments You are receiving this document as you are listed as the primary care provider,follow-up provider, or the patient has been referred to you for consultation.This is in compliance with the Medicare and[facility] EHR Incentive Program,which states Providers who transition their patient to another setting of careor provider of care or refers their patient to another provider of care shouldprovide summary care record for each transition of care or referral. [facility] Allergies No known active allergies Medications Medication [...] (Injected) 09/16/2009 Influenza IIV4 (Quadrivalent ) 0.5mL (06239) 04/11/2014 Influenza Vaccine (3+years) ([facility]) 010 Influenza, Unspecified Formulation 05/18/2016,,05/21/2011 Td (7+ yrs) 08/23/2005 Tdap 07/07/2011 07/07/2021 Family History Medical History Relation Name Comments Macular Degeneration Mother Cancer, Breast Maternal Aunt early 60's Cancer, Ovary Negative Family History Relation Name Status Comments Father Alive Mother Alive Daughter Alive [place], 1986 Maternal Aunt early 60's Maternal Grandfather [...] patient's age to complete this topic RSV Aged Out No longer eligi ble based on patient's age to complete this topic MCV4 Aged Out No longer eligi ble based on patient's age to complete this topic Procedures Procedure Name Priority Date/Time Associated Diagnosis Comments MM MAMMOGRAM SCREENING BILAT W IMPLANTS W CAD Routine 08/12/2016 3:39 PM SLEEP SCIENTIST Visit for screening mammogram PAP TEST, ROUTINE Routine 06/01/2016 3:3 3 PM CDT Screening for cervical cancer LIPID PANEL & DIRECT LDL (IF NEEDED) Routine 06/01/2016 3:33 PM CDT Overweight HEPATITIS C ANTIBODY, WITH REFLEX Routine 01/13/2015 5:04 PM CDT Special screening examination for other specified viral diseases COLONOSCOPY Routine 07/17/2010 10:25 AM SLEEP SCIENTIST Special screening for malignant neoplasms, colon HIV ANTIBODY Routine 03/20/2010 10:34 AM CDT Exposure to HIV from Last 3 Months or Most Recently Relevant to Health Maintenance Results * MM Mammogram Screening Bilat W Implants W CAD (08/12/2016 3:39 PM SLEEP SCIENTIST) Anatomical Region Laterality Modality Breast Bilateral Mammography Impressions 2016 2:08 PM SLEEP SCIENTIST : ACR BI-RADS Category 2: Benign RECOMMENDATION: Follow Up Imaging in 12 months - Bilateral The results and recommendations of this examination will be communicated to the patient. Narrative 2016 2:08 PM SLEEP SCIENTIST MM MAMMOGRAM SCREENING BILAT W IMPLANTS W [...] PM CDT 06/01/2016 3:34 PM CDT Narrative [facility] - 06/01/2016 6:51 PM CDT Performed at [facility], [address] ??[id number] Analy Llanes MD LAB_1 Performing Organization Address City/[facility]/ZIP Co de Phone Number [facility] [phone] * Pap Test, Routine (06/01/2016 3:33 PM CDT) Cytology, Pap (NOTE) Top Carrier Cytology Report Patient Name: NURA JACKSON Taken: [...] ?? Microscopic Description Microscopic examination is performed. [facility] Department of Pathology [address] [place] [address] ??[phone] [facility] 06/01/2016 3:33 PM CDT 06/02/2016 3:56 PM CDT Analy Llanes MD LAB_1 Performing Organization Address City/[facility]/ZIP Co de Phone Number [facility] [employer] [phone] * HEPATITIS C ANTIBODY, WITH REFLEX (01/13/2015 5:04 PM CDT) Anti-HCV Negative (Non Reactive) NEGNR [facility] Comment:Does Not Rule Out In fection with HCV 01/13/2015 5:04 PM CDT 01/13/2015 5:05 PM CDT Narrative [facility] - 01/15/2015 10:31 AM CDT Performed at [facility], [address] [place] [address] ??[phone] Analy Llanes MD LAB_1 [facility] [phone] * COLONOSCOPY [[id number]] (07/17/2010 10:25 AM SLEEP SCIENTIST) URL Link [facility] 07/17/2010 10:2 5 AM SLEEP SCIENTIST Narrative [facility] - 07/17/2010 11:06 AM SLEEP SCIENTIST Indications: ? Screening for malignant neoplasm in [...] ?--- Professional --- ? V76.51 CPT?? 2009 [employer] [employer]. All Rights Reserved. No fee schedules, basic units, relative values or related listings are included in CPT. A does not directly or indirectly practice medicine or dispense medical services. A assumes no liability for data contained or not contained herein. CPT is a registered trademark of the [place] [employer]. The codes documented in this report are preliminary and upon sql etl developer review may be revised to meet current [...] Code(s): --- Professional --- V76.51 CPT?? 2009 [place] [employer]. All Rights Reserved. No fee schedules, basic units, relative values or related listings are included in CPT. [facility] does not directly or indirectly practice medicine or dispense medical services. [facility] assumes no liability for data contained or not contained herein. CPT is a registered trademark of the [place]. The codes documented in this report are preliminary and upon sql etl developer review may be revised to meet current compliance requirements. Attending Participation: Lopez Harrell MD Signed Date: 07/17/2010 11:05 AM Number of Addenda: 0 This report has been signed electronically. Note initiated on 07/17/2010 10:25 AM Lopez Harrell MD [facility] [place], [place] * HIV ANTIBODY (03/20/2010 10:34 AM CDT) HIV 1/2 Antibody Negative (Non Reactive) [facility] Comment: HIV Antibody testing may be falsely negative during the window period. If the patient has had recent exposure (within the past four weeks), consider contacting Infectious Diseases for clarification. 03/20/2010 10:3 4 AM CDT 03/20/2010 10:51 AM CDT Raymundo Patrick MD LAB_1 [place] [address] [address] from Last 3 Months or Most Recently Relevant to Health Maintenance Advance Directives * No Code Status (Latest Code Status on File) Date Activated Date Inactivated Comments 08/23/2005 7:20 AM 08/23/2005 8:20 AM Care Teams Critical Care Nurse Practitioner Relationship Specialty [place] [address] [place] [address] PCP - General 02/15/07
--- OUTSIDE RECORDS SUMMARY | 2024-06-07 08:30 | XMS_ITS | Encounter Summary ---
Author Organization [facility] Address [address] [place] [address] Care Team Providers Care Cyber Intelligence Analyst Name Role Phone Cristofer Llanes MD Primary Care Provider [phone] Encounter Details Date Type Department Care Team [...] documented as of this encounter Care Teams Cyber Intelligence Analyst Relationship Specialty [place] [address] [place] [address] PCP - General 02/15/07 documented as of this encounter
--- OUTSIDE RECORDS SUMMARY | 2024-06-07 08:30 | XMS_ITS | Encounter Summary ---
Author Organization [place] Address [address] [place] [address]. [place] [address] Care Team Providers Care Firer Boiler Name Role Phone [facility]- Primary Care Provider Stevenson Zambrano MD Unavailable [phone] Marlys Joy PA-C Unavailable [phone] Marlys Joy PA-C Unavailable [phone] Reason for Visit * Reason Comments Results Encounter Details Date Type Department Care Team (Late st Contact Info) Description 03/29/2024 Documentation Only [facility] [place] [id number] [facility] [address] [place] [address] Marlys Joy PA-C [address] [facility] [address] [place] [address] Results Social History Tobacco Use Types Packs/Day [...] PM CDT 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 Contact us if recurrent AF Thx - Henna * Daniela Lackey RN - 03/29/2024 8:27 AM CDT 03/29/24 Attempted to call pt but reached VM. PAN and requested callback. KHerroRN 840 am * Daniela Lackey RN - 03/29/2024 8:27 AM CDT 03/29/24 Spoke w pt and explained results of EKG . Pt voiced understanding and agreement with plan. KHerroRN 935 am documented in this encounter Plan of Treatment Not on file documented as of this encounter Visit Diagnoses Diagnosis Encounter for monitoring flecainide therapy Encounter for therapeutic drug monitoring documented in this encounter Care Teams Firer Boiler Relationship Specialty Start Date End Date [facility]- [address] [place] [address] PCP - General 11/12/18 Stevenson Zambrano MD [address] [place] [address] MD Cardiovascular Disease 09/08/22 Marlys Joy PA-C [address] [place] [address] Physician Investment Associate Cardiovascular Disease 10/04/23 Marlys Joy PA-C [address] [place] [address] Assigned Heart and Vascular Provider 11/29/23 documented as of this encounter
--- OUTSIDE RECORDS SUMMARY | 2024-06-07 08:30 | XMS_ITS | Encounter Summary ---
Author Organization [place] Address [address] [place] [address] Care Team Providers Care Fisherman Helper Name Role Phone 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- [address] [place], [place] [id number] PCP - General 11/12/18 Stevenson Zambrano MD [address] [place] [address] Cardiovascular Disease 09/08/22 Marlys Joy PA-C [address] [place] [address] Physician Near Eastern Archaeology Lecturer Cardiovascular Disease 10/04/23 Marlys Joy, GURINDER [address] [place] [address] Assigned Heart and Vascular Provider 11/29/23 documented as of this encounter
--- OUTSIDE RECORDS SUMMARY | 2024-06-07 08:30 | XMS_ITS | Clinical Summary ---
Author Organization [place] Address [address] [place] [address] Care Team Providers Care Stain Maker Name Role Phone [facility]- Primary Care Provider Stevenson Zambrano MD Unavailable [phone] Marlys Joy PA-C Unavailable [phone] Marlys Joy PA-C Unavailable + [phone] Allergies No known active allergies Medications Multiple vitamin TABS Take 1 tablet by [...] ER (TOPROL XL) 25 MG 24 hr tabletIndications :Paroxysmal atrial fibrillation (H) Take 0.5 tablets (12.5 mg) by mouth daily 45 tablet 3 4 Active flecainide (TAMBOCOR) 100 MG tabletIndications :Encounter for monitoring flecainide therapy Take 50 mg ( 1/2 tab) twice daily 30 tablet 11 4 Active Active Problems Problem Noted Date Diagnosed Date Morbid obesity 01/12/2021 S/p total knee replacement, bilateral by Dr. Anthoyn prescott 11/29/2016 [facility] 11/29/2016 Dizziness 11/29/2016 Vitamin B12 deficiency 11/29/2016 History of gastric bypass 11/29/2016 Deep vein thrombosis (DVT) p rophylaxis prescribed at discharge 11/29/2016 Physical deconditioning 11/29/2016 Resolved Problems Problem Noted Date Diagnosed Date Resolved Date Neck pain 12/31/2009 07/16/2011 Headache 12/31/2009 07/16/2011 Overview (05/09/2015): Problem list name updated by automated process. Provider to review Pain in joint, lower leg 02/19/2009 OA (osteoarthritis) of knee 02/19/2009 04/29/2009 Encounters Date Type Department Care Team Description 03/29/2024 Documentation Only [facility] [address] [facility] [address] [place] [phone] Marlys Joy PA-C Results 03/28/2024 3:15 PM CDT Orders Only [address] [place] [phone] Marlys Joy PA-C Encounter for monitoring flecainide therapy 03/28/2024 Travel 03/09/2024 10:00 AM CDT Orders Only [facility] [address] [place] [address] [address] [place] [phone] Marlys Joy PA-C Paroxysmal atrial fibrillation (H); Encounter for monitoring flecainide therapy 03/09/2024 Telephone [facility] [address] [facility] [address] [place] [phone] Daniela Lackey RN 03/09/2024 Travel 03/08/2024 Travel [...] PM CDT 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 Gender Identity Female 05/15/2021 1:20 PM CDT [...] Additional history exists INFLUENZA VACCINE (#1) 2024 3, 04/26/2022, 06/09/2021, Additional history exists GLUCOSE 04/01/2026 [...] Results * EKG 12-lead, tracing only (03/28/2024) us Marlys Joy PA-C ECG ORDERABLES Derrick dylan Result - Final * EKG 12-lead complete w/read - Clinics (to be scheduled) (03/09/2024) Marlys Joy PA-C ECG ORDERABLES Derrick dylan Result - Final * (ABNORMAL) Basic metabolic panel (04/01/2023 6:01 PM CDT) Sodium 138 136 - 145 mmol/L 04/01/2023 6:23 PM CDT LABORATORY Potassium 4.3 3.4 - 5.3 mmol/L 04/01/2023 6:23 PM CDT LABORATORY Chloride 106 98 - 107 mmol/L 04/01/2023 6:23 PM CDT LABORATORY Carbon Dioxide (CO2) 25 22 - 29 mmol/L 04/01/2023 6:23 PM CDT LABORATORY Anion Gap 7 7 - 15 mmol/L 04/01/2023 6:23 PM CDT LABORATORY Urea Nitrogen 12.7 8.0 - 23.0 [...] 6:01 PM CDT 04/01/2023 6:04 PM CDT us Arleen Garcia DO LAB - BLOOD ORDERABLES Final Res ult LABORATORY [facility] Lab [address] Lab (1st floor, no room number) [place] [address], [place] [phone] * Lipid panel (10/18/2007 9:47 AM CDT) [...] 9:47 AM CDT 10/18/2007 9:29 AM CDT us Paula Montelongo LICENSED PSYCHOLOGIST SCHOOL BUS DRIVER/MECHANIC LAB - BLOOD ORDERABLE S Final Result MISYS from Last 3 Months or Most Recently Relevant to Health Maintenance Insurance [facility] CHO[facility] [place] [id number] [facility] CHOICE Care Teams Stain Maker Relationship Specialty Start Date End Date [facility]- [address] [place], [place] [phone] PCP - General 11/12/18 Stevenson Zambrano MD [address] [place] [address] Cardiovascular Disease 09/08/22 Marlys Joy PA-C [address] [place] [address] Physician Baker Cardiovascular Disease 10/04/23 Marlys Joy PA-C [address] [place] [address] Assigned Heart and Vascular Provider 11/29/23
--- OUTSIDE RECORDS SUMMARY | 2024-06-07 08:30 | XMS_ITS | Continuity of Care Document ---
Author Organization [facility] Address [address] [place] [address] Phone Care Team Providers Care Security Assessor Name Role Phone Shawn Valles Unavailable Unavailable [...] Visit,Est, Mod [facility], [address], [place], [place], [id number], [place] tel:[phone] [facility] - [place] Spondylolisth esis, lumbar regionOther spondylosis, lumbar region Abbie Escobar. [facility], [address] [place] [address], [id number], [place]. tel:[phone] Referring Provider: Shawn Rose, [address], [address]. tel:[phone] Office/Outpati ent Visit,New, Mod [facility], [address], [place], [place], [id number], [place] tel:[phone] [facility] - [place] Spondylolisth esis, lumbar regionOther spondylosis, lumbar region Abbie Escobar. [facility], [address] [place] [address], [place], [place], [id number], [place]. tel:[phone] Referring Provider: Shawn Rose, [facility] [address] [place] [address], [place], [address]. tel:[phone] Family History Family Member Type Diagnosis Age At Onset Sister Problem (finding) Ankylosing spondylitis Mother Problem (finding) Ankylosing spondylitis Payers Payer name Insurance type Covered alliance party ID Diogo iglesias(s) r [facility] CI [id number] Social History Type Description Quantity Date Captured [...]
--- OUTSIDE RECORDS SUMMARY | 2024-06-07 08:30 | XMS_ITS | Encounter Summary ---
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 3. Please update SocialThreader med list 4. Repeat EKG 2-3 weeks. I have ordered Pt verified she is currently taking Flecainide 75 mg BID and Toprol 12.5 mg daily. She is in agreement to lowering Flecainide to 50 mg BID Will have scheduling call pt to set up EKG in 2-3 weeks Rx sent to [facility] in [place] Pt voiced understanding and agreement with plan. [...] due to recurrent AF. 3. Please update SocialThreader med list 4. Repeat EKG 2-3 weeks. I have ordered Thx anjum March 09, 2024 at 4:54 PM * Telephone Encounter - Daniela Lackey RN - 03/09/2024 10:18 AM CDT 03/09/24 Pt here for ambulatory EKG after virtual visit w Anjum on 11/03, on Flecainide therapy. Routing to Anjum Joy PA-C for review KHerroRN 1020 am documented in this encounter Plan of Treatment Not on file documented as of this encounter Results * EKG 12-lead, tracing only (03/28/2024) Marlys Joy PA-C ECG ORDERABLES Derrick dylan Result - Final documented in this encounter Visit Diagnoses Diagnosis Encounter for monitoring flecainide therapy- Primary Encounter for therapeutic drug monitoring documented in this encounter Care Teams Room Service Waiter/Waitress Relationship Specialty Start Date End Date [facility]- [address] [place] [address] PCP - General 11/12/18 Stevenson Zambrano MD [address] [place] [address] Cardiovascular Disease 09/08/22 Marlys Joy PA-C [address] [place] [id number] Physician Deputy Jailer Cardiovascular Disease 10/04/23 Marlys Joy PA-C [address] [place] [id number] Assigned Heart and Vascular Provider 11/29/23 documented as of this encounter
--- OUTSIDE RECORDS SUMMARY | 2024-06-07 08:30 | XMS_ITS | Encounter Summary ---
Author Organization [place] Address [address] [place] [address] Care Team Providers Care Inspector Repairer Sandstone Name Role Phone 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- [address] [place], [place] [phone] PCP - General 11/12/18 Stevenson Zambrano MD [address] [place] [address] Cardiovascular Disease 09/08/22 Marlys Joy PA-C [address] [place] [address] Physician Motor Overhauler Cardiovascular Disease 10/04/23 Marlys Joy, GURINDER [address] [place] [address] Assigned Heart and Vascular Provider 11/29/23 documented as of this encounter
--- OUTSIDE RECORDS SUMMARY | 2024-06-07 08:30 | XMS_ITS | Encounter Summary ---
Author Organization [facility] Address [address] [place] [address]. [place] [address] Care Team Providers Care Senior Ui Ux Developer Name Role Phone [facility]- Primary Care Provider Stevenson Zambrano MD Unavailable [phone] Marlys Joy PA-C Unavailable [phone] Marlys Joy PA-C Unavailable + [phone] Encounter Details Date Type Department Care Team (Late st Contact Info) Description 03/28/2024 3:15 PM CDT Orders Only [facility] [id number] [place] [address] [address] [place] [address] Marlys Joy PA-C [address] [facility] [address] [place], [place] [address] Encounter for monitoring flecainide therapy Social History [...] PM CDT Legal Sex Female 3:20 AM TRANSFERRER Gender Identity Female 05/15/2021 1:20 PM CDT [...] monitoring documented in this encounter Care Teams Senior Ui Ux Developer Relationship Specialty Start Date End Date [facility]- [address] [place] [address] PCP - General 11/12/18 Stevenson Zambrano MD [address] [place] [address] Cardiovascular Disease 09/08/22 Marlys Joy PA-C [address] [place] [address] Physician Corporate Tax Manager Cardiovascular Disease 10/04/23 Marlys Joy PA-C [address] [place] [address] Assigned Heart and Vascular Provider 11/29/23 documented as of this encounter
--- OUTSIDE RECORDS SUMMARY | 2024-06-07 08:30 | XMS_ITS | Encounter Summary ---
Author Organization [facility] Address [address] [place] [address]. [place] [address] Care Team Providers Care Door Furring Installer Name Role Phone [facility]- Primary Care Provider Stevenson Zambrano MD Unavailable [phone] Marlys Joy PA-C Unavailable [phone] Marlys Joy PA-C Unavailable + [phone] Encounter Details Date Type Department Care Team (Late st Contact Info) Description 03/09/2024 10:00 AM CDT Orders Only [facility] Heart [facility] [address] [place] [address] [address] [place] [address] Marlys Joy PA-C [address] [facility] [address] [place], [place] [address] Paroxysmal atrial fibrillation (H); Encounter for monitoring [...] PM CDT 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
--- OUTSIDE RECORDS SUMMARY | 2024-06-07 08:30 | XMS_ITS | Referral Summary ---
Author Organization [facility] Address [address] [place] [address] Care Team Providers Care Radio News Anchor Name Role Phone [facility]- Primary Care Provider Stevenson Zambrano MD Unavailable [phone] Marlys Joy PA-C Unavailable [phone] Marlys Joy PA-C Unavailable [phone] Encounters Date Type Department Care Team Description 03/29/2024 Documentation Only [place] [address] [place] [id number] Marlys Joy PA-C Results 03/28/2024 Travel 03/28/2024 3:15 PM CDT Orders Only [address] [place] [address] Marlys Joy PA-C Encounter for monitoring flecainide therapy 03/09/2024 Telephone [place] [phone] [place] [phone] Daniela Lackey RN 03/09/2024 Travel 03/09/2024 10:00 AM CDT Orders Only [address] [place] [address] Marlys Mendieta PA-C Paroxysmal atrial fibrillation (H); Encounter for monitoring flecainide therapy 03/08/2024 Travel from Last 3 Months Allergies No known active allergies Medications Multiple [...] PM CDT Legal Sex Female 3:20 AM INJECTION OPERATOR Gender Identity Female 05/15/2021 1:20 PM [...] CDT Arleen Garcia DO LAB - BLOOD ORDERABLES Final Res ult LABORATORY [facility] Acute [facility] Lab [address] Lab (1st floor, no room number) [place] [address], [place] [phone] * Lipid panel (10/18/2007 9:47 AM CDT) [...] 10/18/2007 9:29 AM CDT us Paula Montelongo ACADEMIC AFFAIRS COORDINATOR LENDING CONSULTANT LAB - BLOOD ORDERABLE S Final Result Performing Organization Address City/State/[facility] Co de Phone Number MISYS from Last 3 Months or Most Recently Relevant to Health Maintenance Insurance [facility] [id number] [place] [id number] [facility] Care Teams Radio News Anchor Relationship Specialty Start Date End Date [facility]- [address] [place], [place] [id number] PCP - General 11/12/18 Stevenson Zambrano MD [address] [place] [id number] Cardiovascular Disease 09/08/22 Marlys Joy PA-C [address] [place] [address] Physician Helicopter Pilot Cardiovascular Disease 10/04/23 Marlys Joy PA-C [address] [place] [address] Assigned Heart and Vascular Provider 11/29/23
== END 2024-06-06 14:42 | disposition home or self-care (01) ==
LOC: NFLDREF 06-07 08:28
PROVIDERS: PCP Physician Assistant Medical; Referring Provider Physician Assistant Medical; Visit Provider Physician Assistant Medical
DX: D64.9 Anemia, unspecified (principal)
CPT/HCPCS: 82746; 83540; 83550

== ENCOUNTER 2024-07-02 08:35 | Outpatient (CLI) | payer OTHER, SELFPAY ==
--- OUTSIDE RECORDS SUMMARY | 2024-07-02 08:37 | XMS_ITS | Continuity of Care Document ---
Author Organization [facility] Address [address] [place] [address] Phone Care Team Providers Care Planer Chain Offbearer Name Role Phone Shawn Valles Unavailable Unavailable [...] Visit,Est, Mod [facility], [address], [place], [place], [id number], [place] tel:[phone] [facility] - [place] Spondylolisth esis, lumbar regionOther spondylosis, lumbar region Abbie Escobar. [facility], [address] [place] [address], [id number], [place]. tel:[phone] Referring Provider: Shawn Rose, [address], [address]. tel:[phone] Office/Outpati ent Visit,New, Mod [facility], [address], [place], [place], [id number], [place] tel:[phone] [facility] - [place] Spondylolisth esis, lumbar regionOther spondylosis, lumbar region Abbie Escobar. [facility], [address] [place] [address] [address], [place], [place], [id number], [place]. tel:[phone] Referring Provider: Shawn Rose, [facility] [address] [place] [address] [address], [place], [address]. tel:[phone] Family History Family Member Type Diagnosis Age At Onset Sister Problem (finding) Ankylosing spondylitis Mother Problem (finding) Ankylosing spondylitis Payers Payer name Insurance type Covered republican ID Diogo iglesias(s) r [facility] CI [id number] Social History Type Description Quantity Date Captured [...]
--- OUTSIDE RECORDS SUMMARY | 2024-07-02 08:37 | XMS_ITS | Clinical Summary ---
Author Organization [facility] Address [address] [place] [address] Care Team Providers Care Technical Sales Associate Name Role Phone Cristofer Llanes MD Primary Care Provider [phone] Source Comments You are receiving this document as you are listed as the primary care provider,follow-up provider, or the patient has been referred to you for consultation.This is in compliance with the Medicare andRegional Medical Centercaid EHR Incentive Program,which states Providers who transition their patient to another setting of careor provider of care or refers their patient to another provider of care shouldprovide summary care record for each transition of care or referral. [facility] Allergies No known active allergies Medications Medication [...] (Injected) 09/16/2009 Influenza IIV4 (Quadrivalent ) 0.5mL (59878) 04/11/2014 Influenza Vaccine (3+years) ([facility]) 010 Influenza, Unspecified Formulation 05/18/2016,,05/21/2011 Td (7+ yrs) 08/23/2005 Tdap 07/07/2011 07/07/2021 Family History Medical History Relation Name Comments Macular Degeneration Mother Cancer, Breast Maternal Aunt early 60's Cancer, Ovary Negative Family History Relation Name Status Comments Father Alive Mother Alive Daughter Alive [place], 1986 Maternal Aunt early 60's Maternal Grandfather [...] 71 11/17/2016 3:20 PM CDT Temperature 36.8 C (98.3 F) 11/17/2016 3:20 PM CDT Respiratory Rate 14 11/17/2016 3:20 PM CDT [...] IMPLANTS W CAD Routine 08/12/2016 3:39 PM SWING FRAME GRINDER OPERATOR Visit for screening mammogram PAP TEST, ROUTINE Routine 06/01/2016 3:3 3 PM CDT Screening for cervical cancer LIPID PANEL & DIRECT LDL (IF NEEDED) Routine 06/01/2016 3:33 PM CDT Overweight HEPATITIS C ANTIBODY, WITH REFLEX Routine 01/13/2015 5:04 PM CDT Special screening examination for other specified viral diseases COLONOSCOPY Routine 07/17/2010 10:25 AM SWING FRAME GRINDER OPERATOR Special screening for malignant neoplasms, colon HIV ANTIBODY Routine 03/20/2010 10:34 AM CDT Exposure to HIV from Last 3 Months or Most Recently Relevant to Health Maintenance Results * MM Mammogram Screening Bilat W Implants W CAD (08/12/2016 3:39 PM SWING FRAME GRINDER OPERATOR) Anatomical Region Laterality Modality Breast Bilateral Mammography Impressions 2016 2:08 PM SWING FRAME GRINDER OPERATOR : ACR BI-RADS Category 2: Benign RECOMMENDATION: Follow Up Imaging in 12 months - Bilateral The results and recommendations of this examination will be communicated to the patient. Narrative 2016 2:08 PM SWING FRAME GRINDER OPERATOR MM MAMMOGRAM SCREENING BILAT W IMPLANTS W CAD performed on 08/12/16 Compared to: 06/17/2014 MAMMOGRAM SCREENING W/IMPLANTS BILATERAL, 04/26/2013 MAMMOGRAM SCREENING W/IMPLANTS BILATERAL, 06/11/2011 MAMMOGRAM SCREENING BILATERAL FINDINGS: Bilateral screening mammogram was performed with the assistance of Computer-Aided Detection. The breasts are heterogeneously dense, which may obscure small masses. There are implants present. There is no radiographic evidence of malignancy. Cristofer Llanes MD RAD RIGO * Lipid Panel [...] PM CDT 06/01/2016 3:34 PM CDT Narrative [facility] - 06/01/2016 6:51 PM CDT Performed at [facility], [address] [place] [address] Cristofer Llanes MD LAB_1 Performing Organization Address City/[facility]/ZIP Co de Phone Number [facility] [phone] * Pap Test, Routine (06/01/2016 3:33 PM CDT) Cytology, Pap (NOTE) Fuel Agent Cytology Report Patient Name: NURA JACKSON Taken: 06/01/2016 Received: 06/02/2016 Reported: 06/04/2016 Physician(s): CRISTOFER LLANES Source of Specimen Pap Test, Routine Cervical/Endocervi sangeeta: Specimen Adequacy Satisfactory for evaluation. Atrophic specimen; endocervical component cannot be determined. Final Cytologic Interpretation/Res ult NEGATIVE FOR INTRAEPITHELIAL LESION OR MALIGNANCY (NILM) *Electronically Signed Out By MARY Jameson (ASCP)* MARY Negrete (ASCP) MARY Jameson (ASCP) Pap Smear History Date of Last Menstrual Period: Menopausal Microscopic Description Microscopic examination is performed. [facility] Department of Pathology [address] [place] [address] [facility] 06/01/2016 3:33 PM CDT 06/02/2016 3:56 PM CDT Cristofer Llanes MD LAB_1 Performing Organization Address City/[facility]/ZIP Co de Phone Number [facility] [phone] * HEPATITIS C ANTIBODY, WITH REFLEX (01/13/2015 5:04 PM CDT) Anti-HCV Negative (Non Reactive) [facility] Comment:Does Not Rule Out In fection with HCV 01/13/2015 5:04 PM CDT 01/13/2015 5:05 PM CDT Narrative [facility] - 01/15/2015 10:31 AM CDT Performed at [facility], [address] [place] [address] Cristofer Llanes MD LAB_1 [facility] [phone] * COLONOSCOPY [[id number]] (07/17/2010 10:25 AM SWING FRAME GRINDER OPERATOR) URL Link [facility]) 07/17/2010 10:2 5 AM SWING FRAME GRINDER OPERATOR Narrative [facility] - 07/17/2010 11:06 AM SWING FRAME GRINDER OPERATOR Indications: Screening for malignant neoplasm in the colon, This is the patient's first colonoscopy Providers: Lopez Harrell MD, Trista Hicks RN Referring MD: Cindy Crabtree MD (Referring MD) Medicines: Fentanyl IV 200 mcgs, Versed IV 4 mgs Complications: No immediate complications. Estimated blood loss: None Procedure: Pre-Anesthesia Assessment: - The risks and [...] G0121 ICD9 Code(s): --- Professional --- V76.51 CPT 2009 [employer]. All Rights Reserved. No fee schedules, basic units, relative values or related listings are included in CPT. A does not directly or indirectly practice medicine or dispense medical services. [facility] assumes no liability for data contained or not contained herein. CPT is a registered trademark of the [employer]. The codes documented in this report are preliminary and upon senior solutions architect review may be revised to meet current compliance requirements. Attending Participation: Lopez Harrell MD Signed Date: 07/17/2010 11:05 AM Number of Addenda: 0 This report has been signed electronically. Note initiated on 07/17/2010 10:25 AM Procedure Note Lopez Harrell MD - 07/17/2010 Indications: Screening for malignant neoplasm in the colon, This is the patient's first colonoscopy Providers: Lopez Harrell MD, Trista Hicks RN Referring MD: Cindy Crabtree MD (Referring MD) [...] G0121 ICD9 Code(s): --- Professional --- V76.51 CPT 2009 [employer]. All Rights Reserved. No fee schedules, basic units, relative values or related listings are included in CPT. AMA does not directly or indirectly practice medicine or dispense medical services. AMA assumes no liability for data contained or not contained herein. CPT is a registered trademark of the [employer]. The codes documented in this report are preliminary and upon senior solutions architect review may be revised to meet current compliance requirements. Attending Participation: Lopez Harrell MD Signed Date: 07/17/2010 11:05 AM Number of Addenda: 0 This report has been signed electronically. Note initiated on 07/17/2010 10:25 AM Lopez Harrell MD DIGESTIVE CARE Performing Organization Address City/[facility] Co de Phone Number [facility] ([facility]) [place], [place] * HIV ANTIBODY (03/20/2010 10:34 AM CDT) HIV 1/2 Antibody Negative (Non Reactive) [facility]NR [facility] Comment: HIV Antibody testing may be falsely negative during the window period. If the patient has had recent exposure (within the past four weeks), consider contacting Infectious Diseases for clarification. 03/20/2010 10:3 4 AM CDT 03/20/2010 10:51 AM CDT Raymundo Patrick MD LAB_1 Performing Organization Address City/[facility] Co de Phone Number [facility] [address] [address] from Last 3 Months or Most Recently Relevant to Health Maintenance Advance Directives * No Code Status (Latest Code Status on File) Date Activated Date Inactivated Comments 08/23/2005 7:20 AM 08/23/2005 8:20 AM Care Teams Technical Sales Associate Relationship Specialty Start [place] [address] [place] [address] PCP - General 02/15/07
--- OUTSIDE RECORDS SUMMARY | 2024-07-02 08:37 | XMS_ITS | Encounter Summary ---
Author Organization [facility] Address [address] [place] [address] Care Team Providers Care Developmental Specialist Name Role Phone Cristofer Llanes MD Primary Care Provider [phone] Encounter Details Date Type Department Care Team [...] documented as of this encounter Care Teams Developmental Specialist Relationship Specialty Start [place] [address] [place] [address] PCP - General 02/15/07 documented as of this encounter
--- OUTSIDE RECORDS SUMMARY | 2024-07-02 08:38 | XMS_ITS | Encounter Summary ---
Author Organization [facility] Address [address] [place] [address] Care Team Providers Care Hand Dry Cleaner Name Role Phone [facility]- Primary Care Provider Stevenson Zambrano MD Unavailable [phone] Marlys Joy PA-C Unavailable [phone] Marlys Joy PA-C Unavailable + [phone] Encounter Details Date Type Department Care Team [...] PM CDT Legal Sex Female 3:20 AM PREFLIGHT MECHANIC Gender Identity Female 05/15/2021 1:20 PM CDT Sexual Orientation Straight 05/15/2021 1: 20 PM CDT documented as of this encounter Plan of Treatment Not on file documented as of this encounter Visit Diagnoses Not on filedocumented in this encounter Care Teams Hand Dry Cleaner Relationship Specialty Start Date End Date [facility]- [address] [place], [place] [id number] PCP - General 11/12/18 Stevenson Zambrano MD [address] [place] [address] Cardiovascular Disease 09/08/22 Marlys Joy PA-C [address] [place] [address] Physician Maintenance Controller Cardiovascular Disease 10/04/23 Marlys Joy, GURINDER [address] [place] [address] Assigned Heart and Vascular Provider 11/29/23 documented as of this encounter
--- OUTSIDE RECORDS SUMMARY | 2024-07-02 08:38 | XMS_ITS | Encounter Summary ---
Author Organization [facility] Address [address] [place] [address] Care Team Providers Care Ripsawyer Name Role Phone [facility]- Primary Care Provider Stevenson Zambrano MD Unavailable [phone] Marlys Joy PA-C Unavailable [phone] Marlys Joy PA-C Unavailable + [phone] Encounter Details Date Type Department Care Team (Late st Contact Info) Description 03/09/2024 Telephone [facility] Heart [address] [place] [address] Daniela Lackey RN Social History [...] PM CDT Legal Sex Female 3:20 AM RECRUITING CONSULTANT Gender Identity Female 05/15/2021 1:20 PM CDT [...] due to recurrent AF. 3. Please update [facility] med list 4. Repeat EKG 2-3 weeks. I have ordered Pt verified she is currently taking Flecainide 75 mg BID and Toprol 12.5 mg daily. She is in agreement to lowering Flecainide to 50 mg BID Will have scheduling call pt to set up EKG in 2-3 weeks Rx sent to [facility] in [place] Pt voiced understanding and agreement with plan. [...] due to recurrent AF. 3. Please update [facility] med list 4. Repeat EKG 2-3 weeks. [...] monitoring documented in this encounter Care Teams Ripsawyer Relationship Specialty Start Date End Date [facility]- [address] [place] [address] PCP - General 11/12/18 Stevenson Zambrano MD [address] [place] [address] Cardiovascular Disease 09/08/22 Marlys Joy PA-C [address] [place] [address] Physician Seafood Specialist Cardiovascular Disease 10/04/23 Marlys Joy PA-C [address] [place] [address] Assigned Heart and Vascular Provider 11/29/23 documented as of this encounter
--- OUTSIDE RECORDS SUMMARY | 2024-07-02 08:38 | XMS_ITS | Referral Summary ---
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 Gender Identity Female 05/15/2021 1:20 PM CDT Sexual Orientation Straight 05/15/2021 1: 20 PM CDT Last Filed Vital Signs Vital Sign Reading Time Taken Comments Blood Pressure 137/76 04/01/2023 8:53 PM CDT Pulse 45 04/01/2023 8:53 PM CDT Temperature 36.9 C (98.5 F) 04/01/2023 4:53 PM CDT Respiratory Rate 16 04/01/2023 8:53 PM CDT Oxygen Saturation 98% 04/01/2023 8:53 PM CDT Inhaled Oxygen Concentration - - Weight 107.9 kg (237 lb 12.8 oz) 2020 12:57 PM CDT Height 160 cm (5' 3) 11/12/2018 4:05 AM CDT Body Mass Index 42.12 11/12/2018 4:05 AM CDT Plan of Treatment Not on file Procedures Procedure Name Priority Date/Time Associated Diagnosis Comments BASIC METABOLIC PANEL STAT 04/01/2023 6:01 PM CDT LIPID PROFILE Routine 10/18/2007 9:47 AM CDT from Last 3 Months or Most Recently Relevant to Health Maintenance Results * (ABNORMAL) Basic metabolic panel (04/01/2023 6:01 [...] - BLOOD ORDERABLES Final Res ult LABORATORY [facility] Acute Care Lab [address] Lab (1st floor, no room number) [place] [address], [facility] [phone] * Lipid panel (10/18/2007 9:47 AM CDT) [...] 10/18/2007 9:29 AM CDT Paula Montelongo APRN INDUSTRIAL SAFETY AND HEALTH SPECIALIST LAB - BLOOD ORDERABLE S Final Result Performing Organization Address [facility] Co de Phone Number MISYS from Last 3 Months or Most Recently Relevant to Health Maintenance Insurance [facility] CHOICE [facility] Care Teams Yarn Winder Relationship Specialty Start Date End Date [facility]- [address] [place], [place] [phone] PCP - General 11/12/18 Stevenson Zambrano MD [address] [place] [address] Cardiovascular Disease 09/08/22 Marlys Joy PA-C [address] [place] [address] Physician Management Developer Cardiovascular Disease 10/04/23 Marlys Joy PA-C [address] [place] [id number] Assigned Heart and Vascular Provider 11/29/23
--- OUTSIDE RECORDS SUMMARY | 2024-07-02 08:38 | XMS_ITS | Encounter Summary ---
Author Organization [facility] Address [address] [place] [address]. [place] [address] Care Team Providers Care Ambulance Dispatcher Name Role Phone [facility]- Primary Care Provider Stevenson Zambrano MD Unavailable [phone] Marlys Joy PA-C Unavailable [phone] Marlys Joy PA-C Unavailable + [phone] Encounter Details Date Type Department Care Team (Late st Contact Info) Description 03/28/2024 3:15 PM CDT Orders Only [facility] [address] [place] [address] [address] [place] [address] Marlys Joy PA-C [address] [facility] [address] [place], [place] [address] Encounter for monitoring flecainide therapy Social History [...] PM CDT Legal Sex Female 3:20 AM PILATES INSTRUCTOR Gender Identity Female 05/15/2021 1:20 PM CDT [...] monitoring documented in this encounter Care Teams Ambulance Dispatcher Relationship Specialty Start Date End Date [facility]- [address] [place] [address] PCP - General 11/12/18 Stevenson Zambrano MD [address] [place] [phone] Cardiovascular Disease 09/08/22 Marlys Joy PA-C [address] [place] [phone] Physician Sales Management Intern Cardiovascular Disease 10/04/23 Marlys Joy PA-C [address] [place] [phone] Assigned Heart and Vascular Provider 11/29/23 documented as of this encounter
--- OUTSIDE RECORDS SUMMARY | 2024-07-02 08:38 | XMS_ITS | Encounter Summary ---
Author Organization [place] Address [address] [place] [address]. [place] [address] Care Team Providers Care Improvement Spec Name Role Phone [facility]- Primary Care Provider Stevenson Zambrano MD Unavailable [phone] Marlys Joy PA-C Unavailable [phone] Marlys Joy PA-C Unavailable [phone] Reason for Visit * Reason Comments Results Encounter Details Date Type Department Care Team (Late st Contact Info) Description 03/29/2024 Documentation Only [facility] [place] [address] [facility] [address] [place] [address] Marlys Joy PA-C [address] [facility] [address] [place] [address] Results Social History Tobacco Use [...] PM CDT 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 Contact us if recurrent AF [...] monitoring documented in this encounter Care Teams Improvement Spec Relationship Specialty Start Date End Date [facility]- [address] [place] [address] PCP - General 11/12/18 Stevenson Zambrano MD [address] [place] [address] MD Cardiovascular Disease 09/08/22 Marlys Joy PA-C [address] [place] [id number] Physician Audio Experience Expert Cardiovascular Disease 10/04/23 Marlys Joy PA-C [address] [place] [address] Assigned Heart and Vascular Provider 11/29/23 documented as of this encounter
--- OUTSIDE RECORDS SUMMARY | 2024-07-02 08:38 | XMS_ITS | Clinical Summary ---
Author Organization [place] Address [address] [place] [address] Care Team Providers Care Bookseamer Blindstitch Name Role Phone [facility], [facility]- Primary Care Provider Stevenson Zambrano MD Unavailable [phone] Marlys Joy PA-C Unavailable [phone] Marlys Joy PA-C Unavailable + [phone] Allergies No known active allergies Medications Multiple [...] by Dr. Anthony prescott 11/29/2016 [facility] [...] 02/19/2009 OA (osteoarthritis) of knee 02/19/2009 04/29/2009 Family History Medical History Relation Comments No [...] PM CDT Legal Sex Female 3:20 AM PRACTICE SUPPORT SPECIALIST Gender Identity Female 05/15/2021 1:20 PM CDT [...] years 1-dose series) 2019 COVID-19 Vaccine ( - season) 2024 06/08/2023, 02/05/2022, 06/10/2021, Additional history exists INFLUENZA VACCINE (#1) 2024 3, 04/26/2022, 06/09/2021, Additional history exists GLUCOSE 04/01/2026 04/01/2023, /2 01/2017, 10/18/2007, Additional history exists DTAP/TDAP/TD IMMUNIZATION [...] LAB - BLOOD ORDERABLES Final Res ult RH LABORATORY [facility] Acute Care Lab [address] Lab (1st floor, no room number) [place] [address], [facility] [phone] * Lipid panel (10/18/2007 9:47 AM CDT) [...] 10/18/2007 9:29 AM CDT Paula Montelongo APRN EDUCATIONAL PROGRAM ASSISTANT LAB - BLOOD ORDERABLE S Final Result Performing Organization Address City/State/[facility] Co de Phone Number MISYS from Last 3 Months or Most Recently Relevant to Health Maintenance Insurance [facility] Care Teams Bookseamer Blindstitch Relationship Specialty Start Date End Date [facility]- [address] [place] [address] PCP - General 11/12/18 Stevenson Zambrano MD [address] [place] [address] Cardiovascular Disease 09/08/22 Marlys Joy PA-C [address] [place] [address] Physician Visual Manager Cardiovascular Disease 10/04/23 Marlys Joy PA-C [address] [place] [address] Assigned Heart and Vascular Provider 11/29/23
--- NOTE | 2024-07-02 11:05 | W.ANESCHARGE ---
Anesthesia Charges Start Date/Time Anesthesia Start Date: 07/02/24 Anesthesia Start Time: 11:11 Stop Date/Time Anesthesia Stop Date: 07/02/24 Anesthesia Stop Time: 11:53
--- NOTE | 2024-07-02 11:57 | W.ANESCHARGE ---
Anesthesia Charges Start Date/Time Anesthesia Start Date: 07/02/24 Anesthesia Start Time: 11:11 Stop Date/Time Anesthesia Stop Date: 07/02/24 Anesthesia Stop Time: 11:53
== END 2024-07-02 08:36 | disposition home or self-care (01) ==
LOC: OP CLINIC 08:35
PROVIDERS: PCP Physician Assistant Medical; Visit Provider Surgery
DX: D50.9 Iron deficiency anemia, unspecified (principal); K64.4 Residual hemorrhoidal skin tags; Z98.84 Bariatric surgery status; K28.9 Gastrojejunal ulcer, unspecified as acute or chronic, without hemorrhage or perforation; Z98.0 Intestinal bypass and anastomosis status
CPT/HCPCS: 00813; 43239; 45378; 88305; J2704; J3490

== ENCOUNTER 2024-07-11 14:55 | Outpatient (CLI) | payer OTHER, SELFPAY ==
--- OUTSIDE RECORDS SUMMARY | 2024-07-11 14:57 | XMS_ITS | Encounter Summary ---
Author Organization [facility] Address [address] [place] [address] Care Team Providers Care Feeder Switchboard Operator Name Role Phone Cristofer Llanes MD Primary Care Provider [phone] Encounter Details Date Type Department Care Team [...] documented as of this encounter Care Teams Feeder Switchboard Operator Relationship Specialty [place] [address] [place] [address] PCP - General 02/15/07 documented as of this encounter
--- OUTSIDE RECORDS SUMMARY | 2024-07-11 14:57 | XMS_ITS | Referral Summary ---
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 WOOD Gender Identity Female 05/15/2021 1:20 PM CDT [...] - BLOOD ORDERABLES Final Res ult LABORATORY [facility] Acute Care Lab [address] Lab (1st floor, no room number) [place] [address], [facility] [phone] * Lipid panel (10/18/2007 9:47 AM CDT) [...] 10/18/2007 9:29 AM CDT Paula Montelongo APRN FEED [place] LAB - BLOOD ORDERABLE S Final Result Performing Organization Address [facility] Co de Phone Number MISYS from Last 3 Months or Most Recently Relevant to Health Maintenance Insurance [employer] Care Teams Slip Laster Relationship Specialty Start Date End Date [facility]- [address] [place], [place] [id number] PCP - General 11/12/18 Stevenson Zambrano MD [address] [place] [id number] Cardiovascular Disease 09/08/22 Marlys Joy PA-C [address] [place] [id number] Physician Livestock Agent Cardiovascular Disease 10/04/23 Marlys Joy PA-C [address] [place] [id number] Assigned Heart and Vascular Provider 11/29/23
--- OUTSIDE RECORDS SUMMARY | 2024-07-11 14:57 | XMS_ITS | Clinical Summary ---
Author Organization [facility] Address [address] [place] [address] Care Team Providers Care Blowing Weasand Name Role Phone Cristofer Llanes MD Primary Care Provider [phone] Source Comments You are receiving this document as you are listed as the primary care provider,follow-up provider, or the patient has been referred to you for consultation.This is in compliance with the Medicare andProm[facility] Hospitalcaid EHR Incentive Program,which states Providers who transition their patient to another setting of careor provider of care or refers their patient to another provider of care shouldprovide summary care record for each transition of care or referral. [facility] Allergies No known active allergies Medications Medication [...] (Injected) 09/16/2009 Influenza IIV4 (Quadrivalent ) 0.5mL (85848) 04/11/2014 Influenza Vaccine (3+years) ([facility]) 010 Influenza, Unspecified Formulation 05/18/2016,,05/21/2011 Td (7+ yrs) 08/23/2005 Tdap 07/07/2011 07/07/2021 Family History Medical History Relation Name Comments Macular Degeneration Mother Cancer, Breast Maternal Aunt early 60's Cancer, Ovary Negative Family History Relation Name Status Comments Father Alive Mother Alive Daughter Alive [place], 1986 Maternal Aunt early 60's Maternal Grandfather [...] IMPLANTS W CAD Routine 08/12/2016 3:39 PM CARBON LAMP CLEANER Visit for screening mammogram PAP TEST, ROUTINE Routine 06/01/2016 3:3 3 PM CDT Screening for cervical cancer LIPID PANEL & DIRECT LDL (IF NEEDED) Routine 06/01/2016 3:33 PM CDT Overweight HEPATITIS C ANTIBODY, WITH REFLEX Routine 01/13/2015 5:04 PM CDT Special screening examination for other specified viral diseases COLONOSCOPY Routine 07/17/2010 10:25 AM CARBON LAMP CLEANER Special screening for malignant neoplasms, colon HIV ANTIBODY Routine 03/20/2010 10:34 AM CDT Exposure to HIV from Last 3 Months or Most Recently Relevant to Health Maintenance Results * MM Mammogram Screening Bilat W Implants W CAD (08/12/2016 3:39 PM CARBON LAMP CLEANER) Anatomical Region Laterality Modality Breast Bilateral Mammography Impressions 2016 2:08 PM CARBON LAMP CLEANER : ACR BI-RADS Category 2: Benign RECOMMENDATION: Follow Up Imaging in 12 months - Bilateral The results and recommendations of this examination will be communicated to the patient. Narrative 2016 2:08 PM CARBON LAMP CLEANER MM MAMMOGRAM SCREENING BILAT W IMPLANTS W [...] PM CDT 06/01/2016 3:34 PM CDT Narrative [facility] - 06/01/2016 6:51 PM CDT Performed at [facility], [address] [place] [address] Cristofer Llanes MD LAB_1 Performing Organization Address City/[facility]/ZIP Co de Phone Number [facility] [phone] * Pap Test, Routine (06/01/2016 3:33 PM CDT) Cytology, Pap (NOTE) [facility] Cytology Report Patient Name: NURA JACKSON Taken: [...] Menopausal Microscopic Description Microscopic examination is performed. [facility] Department of Pathology [address] [place] [address] [facility] 06/01/2016 3:33 PM CDT 06/02/2016 3:56 PM CDT Cristofer Llanes MD LAB_1 Performing Organization Address City/[facility]/ZIP Co de Phone Number [facility] [phone] * HEPATITIS C ANTIBODY, WITH REFLEX (01/13/2015 5:04 PM CDT) Anti-HCV Negative (Non Reactive) [facility] Comment:Does Not Rule Out In fection with HCV 01/13/2015 5:04 PM CDT 01/13/2015 5:05 PM CDT Narrative [facility] - 01/15/2015 10:31 AM CDT Performed at [facility], [address] [place] [address] Cristofer Llanes MD LAB_1 [facility] [phone] * COLONOSCOPY [[id number]] (07/17/2010 10:25 AM CARBON LAMP CLEANER) URL Link [facility] ([facility]) 07/17/2010 10:2 5 AM CARBON LAMP CLEANER Narrative [facility]) - 07/17/2010 11:06 AM CARBON LAMP CLEANER Indications: Screening for malignant neoplasm in the [...] Code(s): --- Professional --- V76.51 CPT 2009 [employer]. All Rights Reserved. No fee schedules, basic units, relative values or related listings are included in CPT. A does not directly or indirectly practice medicine or dispense medical services. [facility] assumes no liability for data contained or not contained herein. CPT is a registered trademark of the [employer]. The codes documented in this report are preliminary and upon maintenance controller review may be revised to meet current [...] Code(s): --- Professional --- V76.51 CPT 2009 [employer]. All Rights Reserved. No fee schedules, basic units, relative values or related listings are included in CPT. AMA does not directly or indirectly practice medicine or dispense medical services. AMA assumes no liability for data contained or not contained herein. CPT is a registered trademark of the [employer]. The codes documented in this report are preliminary and upon maintenance controller review may be revised to meet current compliance requirements. Attending Participation: Lopez Harrell MD Signed Date: 07/17/2010 11:05 AM Number of Addenda: 0 This report has been signed electronically. Note initiated on 07/17/2010 10:25 AM Lopez Harrell MD DIGESTIVE CARE Performing Organization Address City/[facility] Co de Phone Number GI ([facility] [place], [place] * HIV ANTIBODY (03/20/2010 10:34 AM CDT) HIV 1/2 Antibody Negative (Non Reactive) [facility] [employer] Comment: HIV Antibody testing may be falsely negative during the window period. If the patient has had recent exposure (within the past four weeks), consider contacting Infectious Diseases for clarification. 03/20/2010 10:3 4 AM CDT 03/20/2010 10:51 AM CDT Raymundo Patrick MD LAB_1 Performing Organization Address City/[facility] Co de Phone Number [employer] [address] [address] from Last 3 Months or Most Recently Relevant to Health Maintenance Advance Directives * No Code Status (Latest Code Status on File) Date Activated Date Inactivated Comments 08/23/2005 7:20 AM 08/23/2005 8:20 AM Care Teams Blowing Weasand Relationship Specialty Start [place] [address] [place] [address] PCP - General 02/15/07
--- OUTSIDE RECORDS SUMMARY | 2024-07-11 14:57 | XMS_ITS | Clinical Summary ---
Author Organization [place] Address [address] [place] [address] Care Team Providers Care Staff Editor Name Role Phone [facility]- Primary Care Provider Stevenson Zambrano MD Unavailable [phone] Marlys Joy PA-C Unavailable [phone] Marlys Joy PA-C Unavailable [phone] Allergies No known active allergies Medications Multiple [...] by Dr. 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 Gender Identity Female 05/15/2021 1:20 PM CDT [...] BLOOD ORDERABLES Final Res ult RH LABORATORY [facility] Acute Care Lab [address] Lab (1st floor, no room number) [place] [address], [facility] [phone] * Lipid panel (10/18/2007 9:47 AM CDT) [...] 10/18/2007 9:29 AM CDT Paula Montelongo APRN ACADEMIC AFFAIRS DIRECTOR LAB - BLOOD ORDERABLE S Final Result Performing Organization Address City/State/[facility] Co de Phone Number MISYS from Last 3 Months or Most Recently Relevant to Health Maintenance Insurance [facility] Care Teams Staff Editor Relationship Specialty Start Date End Date [facility]- [address] [place] [address] PCP - General 11/12/18 Stevenson Zambrano MD [address] [place] [address] Cardiovascular Disease 09/08/22 Marlys Joy PA-C [address] [place] [address] Physician Molder Foam Rubber Cardiovascular Disease 10/04/23 Marlys Joy PA-C [address] [place] [id number] Assigned Heart and Vascular Provider 11/29/23
--- OUTSIDE RECORDS SUMMARY | 2024-07-11 14:57 | XMS_ITS | Continuity of Care Document ---
Author Organization [facility] Address [address] [place] [address] Phone Care Team Providers Care Lay Health Advocate Name Role Phone Shawn Valles Unavailable Unavailable [...] Visit,Est, Mod [facility], [address], [place], [place], [id number], [place] tel:[phone] [facility] - [place] Spondylolisth esis, lumbar regionOther spondylosis, lumbar region Abbie Escobar. [facility], [address] [place] [address], [id number], [place]. tel:[phone] Referring Provider: Shawn Rose, [address], [address]. tel:[phone] Office/Outpati ent Visit,New, Mod [facility], [address], [place], [place], [id number], [place] tel:[phone] [facility] - [place] Spondylolisth esis, lumbar regionOther spondylosis, lumbar region Abbie Escobar. [facility], [address] [place] [address], [place], [place], [id number], [place]. tel:[phone] Referring Provider: Shawn Rose, [facility] [address] [place] [address], [place], [address]. tel:[phone] Family History Family Member Type Diagnosis Age At Onset Sister Problem (finding) Ankylosing spondylitis Mother Problem (finding) Ankylosing spondylitis Payers Payer name Insurance type Covered republican ID Diogo iglesias(s) r [facility] CI [id number] Social History Type Description Quantity Date Captured [...]
--- NOTE | 2024-07-11 15:20 | CRLHL7_ITS ---
For Patients: As a result of the Century Cures Act, medical imaging exams and procedure reports are released immediately into your electronic medical record. You may view this report before your referring provider. If you have questions, please contact your health care provider. BILATERAL SCREENING MAMMOGRAM WITH COMPUTER-AIDED DETECTION AND TOMOSYNTHESIS TECHNIQUE: CC, MLO and Implant displaced views were obtained. These mammographic images have been obtained using full-field digital technique. These mammographic images were interpreted with the benefit of computer-aided detection. Breast Tomosynthesis was used in this interpretation. RIGHT implant far back, left implant off to the side. Patient`s implants are very difficult to get into position, especially in CC view-the RCC ID is in 2D to avoid repeat imaging, RCC ID is 3D. COMPARISON FILM: 07/02/19, 08/12/16, 06/17/14. FINDINGS: There are scattered areas of fibroglandular density. IMPRESSION: There is no radiographic evidence for malignancy. ASSESSMENT: BI-RADS Category 2: Benign RECOMMENDATION: Routine screening mammogram in 1 year. A lay language report of this examination will be provided to the patient. Lopez Bustos M.D. Diagnostic Radiologist [email or web address] SP/Dictated by: Lopez Bustos MD @ 07/16/2024 12:37:00 PM (Electronically Signed)
== END 2024-07-11 14:56 | disposition home or self-care (01) ==
LOC: MAMMO 14:55
PROVIDERS: PCP Physician Assistant Medical; Visit Provider Physician Assistant Medical
DX: Z12.31 Encounter for screening mammogram for malignant neoplasm of breast (principal)
CPT/HCPCS: 77063; 77067

== ENCOUNTER 2024-07-13 07:45 | Outpatient (RCR) | payer OTHER, SELFPAY | END 2024-11-10 23:59 | disposition home or self-care (01) | PROVIDERS: Visit Provider Physician Assistant Surgical | DX: M43.16 Spondylolisthesis, lumbar region (principal); M54.50 Low back pain, unspecified; M46.1 Sacroiliitis, not elsewhere classified; M25.559 Pain in unspecified hip; Z51.89 Encounter for other specified aftercare | CPT/HCPCS: 97110; 97140; 97162; 97164 ==

== ENCOUNTER 2024-08-13 09:37 | Outpatient (CLI) | payer OTHER, SELFPAY | END 2024-08-13 09:38 | disposition home or self-care (01) | LOC: LKVREF 09:38 | PROVIDERS: PCP Physician Assistant Medical; Visit Provider Physician Assistant Medical | DX: D64.9 Anemia, unspecified (principal); R79.89 Other specified abnormal findings of blood chemistry | CPT/HCPCS: 83540; 83550 ==